=== PATIENT | female | born 1930 | race Caucasian/White ===

== ENCOUNTER 2018-05-29 13:44 | Observation (INO) | payer MEDICARE, BC ==
[2018-05-29 13:50] VITALS: RESP 18
[2018-05-29] MEDS ORDERED: SODIUM CHLORIDE 0.9% 1,000 ML IV STA (14:16)
[2018-05-29] MEDS ORDERED: NITROGLYCERIN SL TABS 0.4 MG TAB SUBLINGUAL STA (14:16)
--- NOTE | 2018-05-29 14:18 | ED ---
General Adult HPI - General Chief complaint: Chest Pain Stated complaint: chest pain Time Seen by Provider: 05/29/18 14:11 Source: patient, RN notes reviewed Mode of arrival: EMS Limitations: no limitations - History of Present Illness Initial comments: 87-year-old female presenting to the emergency room today by EMS, the chief complaint of chest tightness and shortness of breath. Patient does admit that she's been feeling more short of breath with exertion over the last few days. Patient states that last night she felt some heartburn before she went to bed. She states this morning she felt a tightness in her chest that was worse after she was up moving around and became more short of breath. She states at rest there is no shortness of breath. States there is minimal chest tightness at this time a /10. Patient denies any other complaints or symptoms currently. Patient does admit that she did take aspirin full dose prior to arrival. Patient denies any recent fever, chills, shortness of breath, chest pain, back pain, abdominal pain, nausea or vomiting, numbness or tingling, headaches or visual changes, or any other complaints. - Related Data Home Medications Medication Instructions Recorded Confirmed Apixaban [Eliquis] 5 mg PO BID 05/29/18 05/29/18 Ascorbic Acid [Vitamin C] 1,000 mg PO DAILY 05/29/18 05/29/18 Atorvastatin [Lipitor] 10 mg PO DAILY 05/29/18 05/29/18 Citalopram Hydrobromide [CeleXA] 40 mg PO DAILY 05/29/18 05/29/18 Furosemide [Lasix] 20 mg PO DAILY 05/29/18 05/29/18 HYDROcodone/APAP 5-325MG [[place] 1 tab PO Q4HR PRN 05/29/18 05/29/18 5-325] Levothyroxine Sodium [Synthroid] 88 mcg PO DAILY 05/29/18 05/29/18 Losartan-Hctz 50-12.5 mg [Hyzaar 1 tab PO DAILY 05/29/18 05/29/18 50-12.5] Mesalamine [Canasa] 1,000 mg RECTAL HS 05/29/18 05/29/18 Metoprolol Succinate (ER) [Toprol 50 mg PO DAILY 05/29/18 05/29/18 Xl] Multivitamin/Iron/Folic Acid 1 tab PO DAILY 05/29/18 05/29/18 [Centrum Complete Multivit Tab] Tiotropium [place] [Spiriva] 1 cap INHALATION RT-DAILY 05/29/18 05/29/18 hydrALAZINE HCL [Apresoline] 50 mg PO BID 05/29/18 05/29/18 Allergies Allergy/AdvReac Type Severity Reaction Status Date / Time meperidine [From Demerol] Allergy Unknown Verified 05/29/18 16:53 Sulfa (Sulfonamide Allergy Unknown Verified 05/29/18 16:53 Antibiotics) Review of Systems ROS Statement: Those systems with pertinent positive or pertinent negative responses have been documented in the HPI. ROS Other: All systems not noted in ROS Statement are negative. Past Medical History Past Medical History: Cancer, Hyperlipidemia, Hypertension, Myocardial Infarction ([place]) History of Any Multi-Drug Resistant Organisms: None Reported Past Surgical History: Heart Catheterization With Stent, Orthopedic Surgery Past Psychological History: Depression Smoking Status: Former smoker Past Alcohol Use History: Occasional Past Drug Use History: None Reported General Exam - General Exam Comments Initial Comments: General: The patient is awake and alert, in no distress, and does not appear acutely ill. Eye: There is normal conjunctiva bilaterally. No signs of icterus. Ears, nose, mouth and throat: There are moist mucous membranes and no oral lesions. Neck: The neck is supple, there is no tenderness or JVD. Cardiovascular: There is a regular rate and rhythm. No murmur, rub or gallop is appreciated. Respiratory: Lungs are clear to auscultation, respirations are non-labored, breath sounds are equal. No wheezes, stridor, rales, or rhonchi. Gastrointestinal: soft nontender. Musculoskeletal: Normal ROM, no tenderness. Strength 5/5. Sensation intact. Radial pulses equal bilaterally 2+. Neurological: A&O x 3. CN II-XII intact, There are no obvious motor or sensory deficits. Coordination appears grossly intact. Speech is normal. Skin: Skin is warm and dry and no rashes or lesions are noted. Psychiatric: Cooperative, appropriate mood & affect, normal judgment. Limitations: no limitations Course Vital Signs 05/29/18 05/29/18 05/29/18 13:46 15:00 15:08 Temperature 96.8 F L Pulse Rate 104 H 91 106 H Respiratory 18 18 Rate Blood Pressure 181/76 154/86 165/94 O2 Sat by Pulse 92 L 94 L 93 L Oximetry 05/29/18 05/29/18 15:30 16:00 Temperature Pulse Rate 96 97 Respiratory Rate Blood Pressure 165/94 166/97 O2 Sat by Pulse 94 L 97 Oximetry EKG Findings - EKG Comments: EKG Findings:: EKG performed at 1404: Shows atrial fibrillation at 99 bpm. QRS 88. QT/QTc is 400/513. No acute ST changes Medical Decision Making - Medical Decision Making patient's CT is negative for any evidence of PE. Results were discussed with patient. Labs been reviewed. Negative cardiac enzymes. Patient's EKG does show evidence for A. fib. Patient does admit that there is a history she is on pelvic was since heart attack 4 years ago. Patient will be admitted for surgical enzymes and consult cardiology. - Lab Data Result diagrams: 05/29/18 13:57 05/29/18 13:57 Lab Results 05/29/18 05/29/18 05/29/18 Range/Units 13:57 13:57 13:57 WBC 6.4 (3.8-10.6) k/uL RBC 4.30 (3.80-5.40) m/uL Hgb 13.4 (11.4-16.0) gm/dL Hct 39.9 (34.0-46.0) % MCV 92.8 (80.0-100.0) fL MCH 31.1 (25.0-35.0) pg MCHC 33.5 (31.0-37.0) g/dL RDW 13.2 (11.5-15.5) % Plt Count 203 (150-450) k/uL Neutrophils % 74 % Lymphocytes % 11 % Monocytes % 8 % Eosinophils % 3 % Basophils % 1 % Neutrophils # 4.8 (1.3-7.7) k/uL Lymphocytes # 0.7 L (1.0-4.8) k/uL Monocytes # 0.5 (0-1.0) k/uL Eosinophils # 0.2 (0-0.7) k/uL Basophils # 0.0 (0-0.2) k/uL PT (9.0-12.0) sec INR (<1.2) APTT (22.0-30.0) sec D-Dimer (<0.60) mg/L FEU Sodium 138 (137-145) mmol/L Potassium 3.8 (3.5-5.1) mmol/L Chloride 101 (98-107) mmol/L Carbon Dioxide 28 (22-30) mmol/L Anion Gap 9 mmol/L BUN 24 H (7-17) mg/dL Creatinine 1.17 H (0.52-1.04) mg/dL Est GFR (CKD-EPI)AfAm 48 (>60 ml/min/1.73 sqM) Est GFR (CKD-EPI)NonAf 42 (>60 ml/min/1.73 sqM) Glucose 106 H (74-99) mg/dL Calcium 9.7 (8.4-10.2) mg/dL Magnesium 1.9 (1.6-2.3) mg/dL Total Bilirubin 0.8 (0.2-1.3) mg/dL AST 30 (14-36) U/L ALT 23 (9-52) U/L Alkaline Phosphatase 60 (38-126) U/L Total Creatine Kinase 129 (30-135) U/L CK-MB (CK-2) 2.0 (0.0-2.4) ng/mL CK-MB (CK-2) Rel Index 1.6 Troponin I <0.012 (0.000-0.034) ng/mL Total Protein 6.9 (6.3-8.2) g/dL Albumin 4.0 (3.5-5.0) g/dL 05/29/18 05/29/18 Range/Units 13:57 13:57 WBC (3.8-10.6) k/uL RBC (3.80-5.40) m/uL Hgb (11.4-16.0) gm/dL Hct (34.0-46.0) % MCV (80.0-100.0) fL MCH (25.0-35.0) pg MCHC (31.0-37.0) g/dL RDW (11.5-15.5) % Plt Count (150-450) k/uL Neutrophils % % Lymphocytes % % Monocytes % % Eosinophils % % Basophils % % Neutrophils # (1.3-7.7) k/uL Lymphocytes # (1.0-4.8) k/uL Monocytes # (0-1.0) k/uL Eosinophils # (0-0.7) k/uL Basophils # (0-0.2) k/uL PT 10.7 (9.0-12.0) sec INR 1.0 (<1.2) APTT 29.4 (22.0-30.0) sec D-Dimer 0.79 H (<0.60) mg/L FEU Sodium (137-145) mmol/L Potassium (3.5-5.1) mmol/L Chloride (98-107) mmol/L Carbon Dioxide (22-30) mmol/L Anion Gap mmol/L BUN (7-17) mg/dL Creatinine (0.52-1.04) mg/dL Est GFR (CKD-EPI)AfAm (>60 ml/min/1.73 sqM) Est GFR (CKD-EPI)NonAf (>60 ml/min/1.73 sqM) Glucose (74-99) mg/dL Calcium (8.4-10.2) mg/dL Magnesium (1.6-2.3) mg/dL Total Bilirubin (0.2-1.3) mg/dL AST (14-36) U/L ALT (9-52) U/L Alkaline Phosphatase (38-126) U/L Total Creatine Kinase (30-135) U/L CK-MB (CK-2) (0.0-2.4) ng/mL CK-MB (CK-2) Rel Index Troponin I (0.000-0.034) ng/mL Total Protein (6.3-8.2) g/dL Albumin (3.5-5.0) g/dL Disposition Clinical Impression: Chest pain, A-fib Disposition: ADMITTED IP TO THIS HOSP Condition: Good Is patient prescribed a controlled substance at d/c from ED?: No Referrals: Nonstaff,Physician [Primary Care Provider] - 1-2 days Time of Disposition: 17:27
--- NOTE | 2018-05-29 14:38 | XR ---
EXAMINATION TYPE: XR chest 2V DATE OF EXAM: 05/29/2018 COMPARISON: NONE HISTORY: Chest pain and shortness of breath TECHNIQUE: Frontal and lateral views of the chest are obtained. FINDINGS: Patient is rotated. There is no focal air space opacity, pleural effusion, or pneumothorax seen. The cardiac silhouette size is within normal limits. The osseous structures are intact. Pro minent lung volumes suggest underlying COPD. Thoracic spondylosis is present, postop change noted to the shoulder. Prominent lung volumes are compatible with underlying COPD, there is flattening the hem idiaphragms and increased retrosternal airspace. There are overlying cardiac leads. Question some sca ttered densities in the right lower lobe possibly related to old granulomatous disease. There is even tration of the right and left hemidiaphragm. IMPRESSION: No acute cardiopulmonary process. Additional findings above.
[2018-05-29 14:41] LABS: Basophils % (A) 1 %; Eosinophils # (A) 0.2 k/uL (0-0.7); Eosinophils % (A) 3 %; HCT 39.9 % (34.0-46.0); HGB 13.4 gm/dL (11.4-16.0); Lymphocytes # (A) 0.7 k/uL (1.0-4.8); Lymphocytes % (A) 11 %; MCH 31.1 pg (25.0-35.0); MCHC 33.5 g/dL (31.0-37.0); MCV 92.8 fL (80.0-100.0); Mean Platelet Volume 7.2; Monocytes # (A) 0.5 k/uL (0-1.0); Monocytes % (A) 8 %; Neutrophils # (A) 4.8 k/uL (1.3-7.7); Neutrophils % (A) 74 %; Platelet Count 203 k/uL (150-450); RDW 13.2 % (11.5-15.5); WBC 6.4 k/uL (3.8-10.6)
[2018-05-29 14:49] LABS: Partial Thromboplastin Time 29.4 sec (22.0-30.0); Prothrombin Time 10.7 sec (9.0-12.0)
[2018-05-29 14:52] LABS: Calcium 9.7 mg/dL (8.4-10.2); Magnesium 1.9 mg/dL (1.6-2.3); Potassium 3.8 mmol/L (3.5-5.1); Total Bilirubin 0.8 mg/dL (0.2-1.3); Total Protein 6.9 g/dL (6.3-8.2)
[2018-05-29 14:58] LABS: Creatine Kinase 129 U/L (30-135)
[2018-05-29 15:11] LABS: Troponin I <0.012 ng/mL (0.000-0.034)
[2018-05-29] MEDS ORDERED: SODIUM CHLORIDE 0.9% 500 ML 500 ML IV STA (16:06)
--- NOTE | 2018-05-29 16:59 | CT ---
EXAMINATION TYPE: CT angio chest DATE OF EXAM: 05/29/2018 4:48 PM COMPARISON: None HISTORY: Chest pain CT DLP: mGycm Automated exposure control for dose reduction was used. CONTRAST: CTA scan of the thorax is performed , patient injected with mL of , pulmonary embolism protocol. . C ontrast was Isovue 80 mL. There are 3-D post processed images. FINDINGS: There is some mild pulmonary scarring and atelectasis at the lung bases. There is no pleural effusion . There is no pericardial effusion. Heart is slightly enlarged. There are no hilar masses. There is n o mediastinal adenopathy. Thoracic aorta is atheromatous. There is no evidence of aneurysm or dissect ion. Ascending aorta measures 3.4 cm. There is normal contrast opacification of the pulmonary arterie s. I see no filling defect. There is right renal cortical thinning. There is compensatory hypertrophy of the left kidney. There is no evidence of a pulmonary mass. There is some spurring in the thoracic spine. There is no compression fracture. There is mild flattening of the diaphragm. IMPRESSION: MILD ATHEROSCLEROTIC VASCULAR DISEASE. NO EVIDENCE OF PULMONARY EMBOLISM. MINIMAL FIBROTIC CHANGES AT THE LUNG BASES. COPD.
[2018-05-29] MEDS ORDERED: NITROGLYCERIN SL TABS 0.4 MG TAB SUBLINGUAL PRN (17:19)
[2018-05-29] MEDS ORDERED: ASPIRIN 81 MG PO STA (17:19)
[2018-05-29] MEDS ORDERED: LABETALOL SYRINGE 5 MG/ML IVP STA (19:43)
[2018-05-29] MEDS ORDERED: HYDROcodone/APAP 5-325MG 1 EACH TAB PO PRN (19:45)
[2018-05-29] MEDS: SODIUM CHLORIDE 0.9% 1,000 ML IV SCH (20:21)
[2018-05-29 20:30] LABS: Creatine Kinase MB 1.7 ng/mL (0.0-2.4); Troponin I 0.019 ng/mL (0.000-0.034)
[2018-05-29] MEDS ORDERED: METOPROLOL TARTRATE 25 MG TAB PO SCH (21:00)
[2018-05-29] MEDS: hydrALAZINE HCL 50 MG TAB PO SCH (22:44)
[2018-05-29] MEDS: APIXABAN 5 MG TAB PO SCH (22:44)
[2018-05-29 23:17] VITALS: BMI 24.7
[2018-05-29] MEDS: NITROGLYCERIN OINT 1 INCH/GM PACKET TOPICAL SCH (23:21)
[2018-05-30 03:02] LABS: Cholesterol 113 mg/dL (<200); HDL Cholesterol 56 mg/dL (40-60); LDL Cholesterol,Calculated 42 mg/dL (0-99); Triglycerides 74 mg/dL (<150)
[2018-05-30 03:28] LABS: Creatine Kinase MB 2.1 ng/mL (0.0-2.4); Troponin I 0.024 ng/mL (0.000-0.034)
[2018-05-30 03:44] VITALS: TEMP 97.9
[2018-05-30] MEDS: SODIUM CHLORIDE 0.9% 1,000 ML IV SCH (03:58)
[2018-05-30] MEDS: NITROGLYCERIN OINT 1 INCH/GM PACKET TOPICAL SCH (06:10)
[2018-05-30] MEDS ORDERED: LEVOTHYROXINE 88 MCG TAB PO SCH (06:30)
[2018-05-30] MEDS ORDERED: FUROSEMIDE 20 MG TAB PO SCH (09:00)
[2018-05-30] MEDS ORDERED: LOSARTAN-HCTZ 50-12.5 MG 1 EACH TAB PO SCH (09:00)
[2018-05-30] MEDS ORDERED: ASPIRIN 325 MG TAB PO SCH (09:00)
[2018-05-30] MEDS ORDERED: CITALOPRAM HYDROBROMIDE 20 MG TAB PO SCH (09:00)
[2018-05-30] MEDS ORDERED: ATORVASTATIN 10 MG TAB PO SCH (09:00)
[2018-05-30] MEDS ORDERED: METOPROLOL SUCCINATE (ER) 50 MG TAB.ER.24H PO SCH (09:00)
[2018-05-30] MEDS: hydrALAZINE HCL 50 MG TAB PO SCH (09:05)
[2018-05-30] MEDS: APIXABAN 5 MG TAB PO SCH (09:06)
[2018-05-30] MEDS ORDERED: LOSARTAN 50 MG TAB PO ONE (10:45)
[2018-05-30] MEDS ORDERED: LOSARTAN 50 MG TAB PO SCH (10:45)
--- NOTE | 2018-05-30 11:22 | ECHOF ---
Referral Reason:Chest pressure MEASUREMENTS -------- HEIGHT: 162.6 cm WEIGHT: 63.5 kg BP: 123/60 IVSd: 1.3 cm (0.6 - 1.1) LVIDd: 4.1 cm (3.9 - 5.3) LVPWd: 1.3 cm (0.6 - 1.1) IVSs: 1.4 cm LVIDs: 3.2 cm LVPWs: 1.4 cm LA Diam: 4.7 cm (2.7 - 3.8) LAESV Index (A-L): 36.59 ml/m Ao Diam: 3.2 cm (2.0 - 3.7) AV Cusp: 1.2 cm (1.5 - 2.6) LA Diam: 4.3 cm (2.7 - 3.8) MV EXCURSION: 20.824 mm (> 18.000) MV EF SLOPE: 103 mm/s (70 - 150) EPSS: 0.2 cm MV E Ronald: 0.92 m/s MV DecT: 243 ms MV A Ronald: 0.91 m/s MV E/A Ratio: 1.01 AR PHT: 377 ms RAP: 5.00 mmHg RVSP: 61.45 mmHg FINDINGS -------- Undetermined rhythm. This was a technically good study. The left ventricular size is normal. There is mild concentric left ventricular hypertrophy. Overa ll left ventricular systolic function is normal with, an EF between 55 - 60 %. The right ventricle is normal in size. The left atrium is moderately dilated. LA is moderately dilated 34-39 ml/m2 The right atrial size is normal. There is mild aortic valve sclerosis. There is mild aortic regurgitation. Mild mitral annular calcification present. Mild mitral regurgitation is present. Mild tricuspid regurgitation present. There is moderate pulmonary hypertension. The right ventric ular systolic pressure, as measured by Doppler, is 61.45mmHg. Trace/mild (physiologic) pulmonic regurgitation. The aortic root size is normal. There is no pericardial effusion. CONCLUSIONS -------- 1. The left ventricular size is normal. 2. There is mild concentric left ventricular hypertrophy. 3. Overall left ventricular systolic function is normal with, an EF between 55 - 60 %. 4. The right ventricle is normal in size. 5. The left atrium is moderately dilated. 6. LA is moderately dilated 34-39 ml/m2 7. The right atrial size is normal. 8. There is mild aortic valve sclerosis. 9. There is mild aortic regurgitation. 10. Mild mitral annular calcification present. 11. Mild mitral regurgitation is present. 12. Mild tricuspid regurgitation present. 13. There is moderate pulmonary hypertension. 14. The right ventricular systolic pressure, as measured by Doppler, is 61.45mmHg. 15. Trace/mild (physiologic) pulmonic regurgitation. 16. The aortic root size is normal. 17. There is no pericardial effusion. DIRECTOR DRUG: Loni Schwarz RDCS
[2018-05-30] MEDS ORDERED: CAFFEINE CITRATE 60 MG/3 ML VIAL IV PRN (11:24)
[2018-05-30] MEDS ORDERED: REGADENOSON 0.4 MG/5 ML SYRINGE IV ONE (11:24)
--- NOTE | 2018-05-30 11:40 | P.CRDCN ---
History of Present Illness Consult date: 05/30/18 Requesting physician: Kaia Omalley Consult reason: chest pain, atrial fibrillation Chief complaint: Exertional shortness of breath and chest discomfort History of present illness: This is a pleasant 87-year-old female who actually resides in [place], she is here in this area locally taking care of her sister right now who had surgery. She has a known history of hypertension, hyperlipidemia, paroxysmal atrial fibrillation for which she takes Eliquis, coronary artery disease with prior stent placement approximately 4 years ago. She is a nonsmoker. According to the patient over the past few days she has noticed herself to be exertionally short of breath, even walking small distances she becomes quite short of breath. Symptoms seemed to resolve when she rests. Just prior to admission here she also noticed on top of the shortness of breath that she had some chest heaviness and pressure. When she went to bed that evening prior she did have some mild heartburn. Because of these progressively worsening symptoms of exertional shortness of breath and episode of chest discomfort she came to the hospital for further evaluation. Chest x-ray on arrival here did not reveal any acute cardiopulmonary process. CTA of the chest was performed which revealed mild atherosclerotic vascular disease with no evidence of pulmonary embolism. EKG on admission here showed atrial fibrillation with nonspecific ST- T wave changes heart rate around 100 on admission. She has since been burred to normal sinus rhythm and remains in sinus rhythm at this time. She had an echo cardiac gram with Doppler study performed which revealed an EF of 55-60%. Moderate pulmonary hypertension. Blood pressure 164/70 heart rate in the 70s, 94% on room air. Blood pressure earlier this morning 128/60 with a heart rate in the 60s. White blood cell count 6.4, hemoglobin 13.4, platelet count 203. D -dimer 0.79. Sodium 138, potassium 3.8, BUN 24, creatinine 1.1. Troponins 0.012, 0.019, 0.024. At the time of my examination this morning, patient is sitting up in bed, denies any shortness of breath, no palpitations, no chest discomfort. Past Medical History Past Medical History: Atrial Fibrillation, Cancer, Hyperlipidemia, Hypertension , Myocardial Infarction ([place]) Additional Past Medical History / Comment(s): Breast Cancer (1997), Right lumpectomy. Last Myocardial Infarction Date:: 06/22/2013 History of Any Multi-Drug Resistant Organisms: None Reported Past Surgical History: Heart Catheterization With Stent, Orthopedic Surgery Past Anesthesia/Blood Transfusion Reactions: No Reported Reaction Date of Last Stent Placement:: 06/22/2013 Past Psychological History: Depression Smoking Status: Former smoker Past Alcohol Use History: Occasional Past Drug Use History: None Reported - Past Family History Father Additional Family Medical History / Comment(s): Meningitis Mother Family Medical History: Dementia, Hypertension Medications and Allergies Home Medications Medication Instructions Recorded Confirmed Type Apixaban [Eliquis] 5 mg PO BID 05/29/18 05/29/18 History Ascorbic Acid [Vitamin C] 1,000 mg PO DAILY 05/29/18 05/29/18 History Atorvastatin [Lipitor] 10 mg PO DAILY 05/29/18 05/29/18 History Citalopram Hydrobromide [CeleXA] 40 mg PO DAILY 05/29/18 05/29/18 History Furosemide [Lasix] 20 mg PO DAILY 05/29/18 05/29/18 History HYDROcodone/APAP 5-325MG [[place] 1 tab PO Q4HR PRN 05/29/18 05/29/18 History 5-325] Levothyroxine Sodium [Synthroid] 88 mcg PO DAILY 05/29/18 05/29/18 History Losartan-Hctz 50-12.5 mg [Hyzaar 1 tab PO DAILY 05/29/18 05/29/18 History 50-12.5] Mesalamine [Canasa] 1,000 mg RECTAL HS 05/29/18 05/29/18 History Metoprolol Succinate (ER) [Toprol 50 mg PO DAILY 05/29/18 05/29/18 History Xl] Multivitamin/Iron/Folic Acid 1 tab PO DAILY 05/29/18 05/29/18 History [Centrum Complete Multivit Tab] Tiotropium [place] [Spiriva] 1 cap INHALATION RT-DAILY 05/29/18 05/29/18 History hydrALAZINE HCL [Apresoline] 50 mg PO BID 05/29/18 05/29/18 History Allergies Allergy/AdvReac Type Severity Reaction Status Date / Time meperidine [From Demerol] Allergy Unknown Verified 05/29/18 16:53 Sulfa (Sulfonamide Allergy Unknown Verified 05/29/18 16:53 Antibiotics) Physical Exam Vitals: Vital Signs Temp Pulse Pulse Resp BP BP Pulse Ox 05/30/18 09:00 79 18 164/76 94 L 05/30/18 03:40 97.9 F 69 18 127/60 93 L 05/30/18 00:36 97.6 F 75 18 124/57 93 L 05/30/18 00:00 18 05/29/18 22:41 97.8 F 78 18 211/91 96 05/29/18 21:30 64 157/95 97 05/29/18 21:00 72 179/65 97 05/29/18 20:30 61 203/94 97 05/29/18 20:00 104 H 206/97 05/29/18 19:30 100 216/110 05/29/18 19:00 87 210/109 97 05/29/18 18:30 101 H 211/115 98 05/29/18 18:00 222/121 05/29/18 17:30 109 H 207/124 95 05/29/18 17:00 91 179/83 97 05/29/18 16:00 97 166/97 97 05/29/18 15:30 96 165/94 94 L 05/29/18 15:08 106 H 18 165/94 93 L 05/29/18 15:00 91 154/86 94 L 05/29/18 13:46 96.8 F L 104 H 18 181/76 92 L Intake and Output 05/29/18 05/30/18 05/30/18 22:59 06:59 14:59 Intake Total 750 240 Balance 750 240 Intake: Intake, IV Titration 750 Amount Sodium Chloride 0.9% 1, 250 000 ml @ 100 mls/hr IV . Q10H VANESSA Rx#:[id number] Sodium Chloride 0.9% 500 500 ml 500 ml @ 999 mls/hr IV .Q31M STA Rx#:[id number] Oral 240 Other: Voiding Method Self-Catheterization Self-Catheterization Weight 63.503 kg 65.1 kg PHYSICAL EXAMINATION: GENERAL: 79-year-old female in no acute distress at the time of my examination HEENT: Head is atraumatic, normocephalic. Pupils equal, round. Sclera anicteric. Conjunctiva are clear. Mucous membranes of the mouth are moist. Neck is supple. There is no elevated jugular venous pressure. No carotid bruit is heard. HEART EXAMINATION: Heart S1, S2 normal. No murmur or gallop heard. CHEST EXAMINATION: Lungs are clear to auscultation and precussion. No chest wall tenderness is noted on palpation or with deep breathing. ABDOMEN: Soft, nontender. Bowel sounds are heard. No organomegaly noted. EXTREMITIES: 2+ peripheral pulses with no evidence of peripheral edema and no calf tenderness noted. NEUROLOGIC patient is awake, alert and oriented 3 . . Results 05/29/18 13:57 05/29/18 13:57 Cardiac Enzymes 05/29/18 05/29/18 05/29/18 Range/Units 13:57 13:57 19:21 AST 30 (14-36) U/L CK-MB (CK-2) 2.0 1.7 (0.0-2.4) ng/mL Troponin I <0.012 0.019 (0.000-0.034) ng/mL 05/30/18 Range/Units 02:32 AST (14-36) U/L CK-MB (CK-2) 2.1 (0.0-2.4) ng/mL Troponin I 0.024 (0.000-0.034) ng/mL Coagulation 05/29/18 Range/Units 13:57 PT 10.7 (9.0-12.0) sec APTT 29.4 (22.0-30.0) sec Lipids 05/30/18 Range/Units 02:32 Triglycerides 74 (<150) mg/dL Cholesterol 113 (<200) mg/dL HDL Cholesterol 56 (40-60) mg/dL CBC 05/29/18 Range/Units 13:57 WBC 6.4 (3.8-10.6) k/uL RBC 4.30 (3.80-5.40) m/uL Hgb 13.4 (11.4-16.0) gm/dL Hct 39.9 (34.0-46.0) % Plt Count 203 (150-450) k/uL Comprehensive Metabolic Panel 05/29/18 Range/Units 13:57 Sodium 138 (137-145) mmol/L Potassium 3.8 (3.5-5.1) mmol/L Chloride 101 (98-107) mmol/L Carbon Dioxide 28 (22-30) mmol/L BUN 24 H (7-17) mg/dL Creatinine 1.17 H (0.52-1.04) mg/dL Glucose 106 H (74-99) mg/dL Calcium 9.7 (8.4-10.2) mg/dL AST 30 (14-36) U/L ALT 23 (9-52) U/L Alkaline Phosphatase 60 (38-126) U/L Total Protein 6.9 (6.3-8.2) g/dL Albumin 4.0 (3.5-5.0) g/dL Current Medications Generic Name Dose Route Start Last Admin Trade Name Freq PRN Reason Stop Dose Admin Hydrocodone Bitart/Acetaminophen 1 each 05/29/18 19:45 [place] 5-325 PO Q4HR PRN Pain Apixaban 5 mg 05/29/18 21:00 05/30/18 09:06 Eliquis PO 5 mg BID VANESSA Administration Aspirin 325 mg 05/30/18 09:00 05/30/18 09:05 Aspirin PO 325 mg DAILY VANESSA Administration Atorvastatin Cal[place] 10 mg 05/30/18 09:00 05/30/18 09:05 Lipitor PO 10 mg DAILY VANESSA Administration Caffeine Citrate 60 mg 05/30/18 11:24 Cafcit Inj IV 05/31/18 11:25 ONCE PRN Patient Response Citalopram Hydrobromide 40 mg 05/30/18 09:00 05/30/18 09:05 Celexa PO 40 mg DAILY VANESSA Administration Hydralazine HCl 50 mg 05/29/18 21:00 05/30/18 09:05 Apresoline PO 50 mg BID VANESSA Administration Sodium Chloride 1,000 mls @ 20 mls/hr 05/29/18 14:16 05/29/18 20:21 Saline 0.9% IV 05/30/18 14:15 Not Given .Q24H STA Sodium Chloride 1,000 mls @ 100 mls/hr 05/29/18 17:30 05/30/18 03:58 Saline 0.9% IV Not Given .Q10H VANESSA Levothyroxine Sodium 88 mcg 05/30/18 06:30 05/30/18 06:10 Synthroid PO 88 mcg 0630 VANESSA Administration Losartan Potassium 100 mg 05/31/18 09:00 Cozaar PO DAILY VANESSA Metoprolol Succinate 50 mg 05/30/18 09:00 05/30/18 09:10 Toprol Xl PO 50 mg DAILY VANESSA Administration Nitroglycerin 0.4 mg 05/29/18 17:19 Nitrostat SUBLINGUAL Q5M PRN Chest Pain Regadenoson 0.4 mg 05/30/18 11:24 Lexiscan IV 05/30/18 11:25 ONCE ONE Intake and Output 05/29/18 05/30/18 05/30/18 22:59 06:59 14:59 Intake Total 750 240 Balance 750 240 Intake: Intake, IV Titration 750 Amount Sodium Chloride 0.9% 1, 250 000 ml @ 100 mls/hr IV . Q10H VANESSA Rx#:[id number] Sodium Chloride 0.9% 500 500 ml 500 ml @ 999 mls/hr IV .Q31M STA Rx#:[id number] Oral 240 Other: Voiding Method Self-Catheterization Self-Catheterization Weight 63.503 kg 65.1 kg Patient Weight 05/31/18 06:59 Weight 65.1 kg 05/29/18 13:57 05/29/18 13:57 EKG Interpretations (text) EKG on admission showed atrial fibrillation with moderately rapid ventricular response Assessment and Plan Plan: Assessment and plan #1 symptoms of exertional shortness of breath as well as associated chest discomfort. Suggestive of possible angina. Symptoms could also be secondary to atrial fibrillation. Troponins 0.012, 0.019, 0.024. EKG on admission showed atrial fibrillation with moderately rapid ventricular response, nonspecific ST-T wave changes. CTA of the chest negative for pulmonary embolism echo shows normal LV function #2 known history of coronary artery disease with stent placement approximately 4 years ago in [place] #3 history of paroxysmal atrial fibrillation on Eliquis for anticoagulation #4 atrial fibrillation with moderately rapid ventricular response, currently in normal sinus rhythm. #5 hypothyroidism #6 hypertension #7 hyperlipidemia Plan We will perform a Lexiscan stress test on the patient today, if it's negative she may be able to be discharged home from our perspective. If the stress test is positive, she may require cardiac catheterization. Echo shows normal LV function. Further recommendations to follow. DNP note has been reviewed, I agree with a documented findings and plan of care. Patient was seen and examined.
[2018-05-30 12:03] VITALS: BP 165/78; PULSE 67
--- NOTE | 2018-05-30 12:08 | P.CRDCN ---
History of Present Illness History of present illness: This is Dr. Claros dictating a consult on this patient The patient was interviewed and examined by me IMPRESSION / ASSESSMENT: Paroxysmal atrial fibrillation with reasonable rate control on 50 mm of metoprolol [address] depression inferolaterally during atrial fibrillation Presented with shortness of breath and some chest discomfort Normal chronic enzymes 3 Known coronary artery disease status post stenting in the past at least 4 years back Appropriately anticoagulated Hypertension on losartan 100 mg by mouth daily blood pressure recently well controlled Hemoglobin 13.4, BUN/creatinine are 24 and 1.17 sodium 138 potassium 3.8 Left radical ejection fraction 50-60% moderately enlarged left atrium mild MR right ventricle systolic pressure of 60 mmHg PLAN: Patient may go home in the next 4-48 hours and follow with me in june 2 40 5 PM. Further evaluation as an outpatient Increase atorvastatin 40 mg by mouth daily Continue metoprolol long-acting 50 mrem daily continue losartan 100 mg by mouth daily As an outpatient follow-up Holter monitor will be ordered. And I may consider increasing metoprolol to 75 mg by mouth daily as long as a sinus rates are okay. Discharge 12-lead ECG and a saldaña walk with be performed Amlodipine may be chosen in place of hydralazine as an outpatient Past Medical History Past Medical History: Atrial Fibrillation, Cancer, Hyperlipidemia, Hypertension , Myocardial Infarction ([place]) Additional Past Medical History / Comment(s): Breast Cancer (1997), Right lumpectomy. Last Myocardial Infarction Date:: 06/22/2013 History of Any Multi-Drug Resistant Organisms: None Reported Past Surgical History: Heart Catheterization With Stent, Orthopedic Surgery Past Anesthesia/Blood Transfusion Reactions: No Reported Reaction Date of Last Stent Placement:: 06/22/2013 Past Psychological History: Depression Smoking Status: Former smoker Past Alcohol Use History: Occasional Past Drug Use History: None Reported - Past Family History Father Additional Family Medical History / Comment(s): Meningitis Mother Family Medical History: Dementia, Hypertension Medications and Allergies Home Medications Medication Instructions Recorded Confirmed Type Apixaban [Eliquis] 5 mg PO BID 05/29/18 05/29/18 History Ascorbic Acid [Vitamin C] 1,000 mg PO DAILY 05/29/18 05/29/18 History Atorvastatin [Lipitor] 10 mg PO DAILY 05/29/18 05/29/18 History Citalopram Hydrobromide [CeleXA] 40 mg PO DAILY 05/29/18 05/29/18 History Furosemide [Lasix] 20 mg PO DAILY 05/29/18 05/29/18 History HYDROcodone/APAP 5-325MG [[place] 1 tab PO Q4HR PRN 05/29/18 05/29/18 History 5-325] Levothyroxine Sodium [Synthroid] 88 mcg PO DAILY 05/29/18 05/29/18 History Losartan-Hctz 50-12.5 mg [Hyzaar 1 tab PO DAILY 05/29/18 05/29/18 History 50-12.5] Mesalamine [Canasa] 1,000 mg RECTAL HS 05/29/18 05/29/18 History Metoprolol Succinate (ER) [Toprol 50 mg PO DAILY 05/29/18 05/29/18 History Xl] Multivitamin/Iron/Folic Acid 1 tab PO DAILY 05/29/18 05/29/18 History [Centrum Complete Multivit Tab] Tiotropium [place] [Spiriva] 1 cap INHALATION RT-DAILY 05/29/18 05/29/18 History hydrALAZINE HCL [Apresoline] 50 mg PO BID 05/29/18 05/29/18 History Allergies Allergy/AdvReac Type Severity Reaction Status Date / Time meperidine [From Demerol] Allergy Unknown Verified 05/29/18 16:53 Sulfa (Sulfonamide Allergy Unknown Verified 05/29/18 16:53 Antibiotics) Physical Exam Vitals: Vital Signs Temp Pulse Pulse Resp BP BP Pulse Ox 05/30/18 12:00 67 18 165/78 94 L 05/30/18 09:00 79 18 164/76 94 L 05/30/18 03:40 97.9 F 69 18 127/60 93 L 05/30/18 00:36 97.6 F 75 18 124/57 93 L 05/30/18 00:00 18 05/29/18 22:41 97.8 F 78 18 211/91 96 05/29/18 21:30 64 157/95 97 05/29/18 21:00 72 179/65 97 05/29/18 20:30 61 203/94 97 05/29/18 20:00 104 H 206/97 05/29/18 19:30 100 216/110 05/29/18 19:00 87 210/109 97 05/29/18 18:30 101 H 211/115 98 05/29/18 18:00 222/121 05/29/18 17:30 109 H 207/124 95 05/29/18 17:00 91 179/83 97 05/29/18 16:00 97 166/97 97 05/29/18 15:30 96 165/94 94 L 05/29/18 15:08 106 H 18 165/94 93 L 05/29/18 15:00 91 154/86 94 L 05/29/18 13:46 96.8 F L 104 H 18 181/76 92 L Intake and Output 05/29/18 05/30/18 05/30/18 22:59 06:59 14:59 Intake Total 750 640 Balance 750 640 Intake: Intake, IV Titration 750 400 Amount Sodium Chloride 0.9% 1, 250 400 000 ml @ 100 mls/hr IV . Q10H [facility] Rx#:[id number] Sodium Chloride 0.9% 500 500 ml 500 ml @ 999 mls/hr IV .Q31M [facility] Rx#:[id number] Oral 240 Other: Voiding Method Self-Catheterization Self-Catheterization Weight 63.503 kg 65.1 kg Results 05/29/18 13:57 05/29/18 13:57 Cardiac Enzymes 05/29/18 05/29/18 05/29/18 Range/Units 13:57 13:57 19:21 AST 30 (14-36) U/L CK-MB (CK-2) 2.0 1.7 (0.0-2.4) ng/mL Troponin I <0.012 0.019 (0.000-0.034) ng/mL 05/30/18 Range/Units 02:32 AST (14-36) U/L CK-MB (CK-2) 2.1 (0.0-2.4) ng/mL Troponin I 0.024 (0.000-0.034) ng/mL Coagulation 05/29/18 Range/Units 13:57 PT 10.7 (9.0-12.0) sec APTT 29.4 (22.0-30.0) sec Lipids 05/30/18 Range/Units 02:32 Triglycerides 74 (<150) mg/dL Cholesterol 113 (<200) mg/dL HDL Cholesterol 56 (40-60) mg/dL CBC 05/29/18 Range/Units 13:57 WBC 6.4 (3.8-10.6) k/uL RBC 4.30 (3.80-5.40) m/uL Hgb 13.4 (11.4-16.0) gm/dL Hct 39.9 (34.0-46.0) % Plt Count 203 (150-450) k/uL Comprehensive Metabolic Panel 05/29/18 Range/Units 13:57 Sodium 138 (137-145) mmol/L Potassium 3.8 (3.5-5.1) mmol/L Chloride 101 (98-107) mmol/L Carbon Dioxide 28 (22-30) mmol/L BUN 24 H (7-17) mg/dL Creatinine 1.17 H (0.52-1.04) mg/dL Glucose 106 H (74-99) mg/dL Calcium 9.7 (8.4-10.2) mg/dL AST 30 (14-36) U/L ALT 23 (9-52) U/L Alkaline Phosphatase 60 (38-126) U/L Total Protein 6.9 (6.3-8.2) g/dL Albumin 4.0 (3.5-5.0) g/dL Current Medications Generic Name Dose Route Start Last Admin Trade Name Freq PRN Reason Stop Dose Admin Hydrocodone Bitart/Acetaminophen 1 each 05/29/18 19:45 [place] 5-325 PO Q4HR PRN Pain Apixaban 5 mg 05/29/18 21:00 05/30/18 09:06 Eliquis PO 5 mg BID [facility] Administration Aspirin 81 mg 05/31/18 09:00 Aspirin PO DAILY [facility] Atorvastatin Calcium 40 mg 05/30/18 21:00 Lipitor PO HS [facility] Caffeine Citrate 60 mg 05/30/18 11:24 Cafcit Inj IV 05/31/18 11:25 ONCE PRN Patient Response Citalopram Hydrobromide 40 mg 05/30/18 09:00 05/30/18 09:05 Celexa PO 40 mg DAILY [facility] Administration Hydralazine HCl 50 mg 05/29/18 21:00 05/30/18 09:05 Apresoline PO 50 mg BID [facility] Administration Sodium Chloride 1,000 mls @ 20 mls/hr 05/29/18 14:16 05/29/18 20:21 Saline 0.9% IV 05/30/18 14:15 Not Given .Q24H [facility] Sodium Chloride 1,000 mls @ 100 mls/hr 05/29/18 17:30 05/30/18 03:58 Saline 0.9% IV Not Given .Q10H [facility] Levothyroxine Sodium 88 mcg 05/30/18 06:30 05/30/18 06:10 Synthroid PO 88 mcg 0630 [facility] Administration Losartan Potassium 100 mg 05/31/18 09:00 Cozaar PO DAILY [facility] Metoprolol Succinate 50 mg 05/30/18 09:00 05/30/18 09:10 Toprol Xl PO 50 mg DAILY [facility] Administration Nitroglycerin 0.4 mg 05/29/18 17:19 Nitrostat SUBLINGUAL Q5M PRN Chest Pain Intake and Output 05/29/18 05/30/18 05/30/18 22:59 06:59 14:59 Intake Total 750 640 Balance 750 640 Intake: Intake, IV Titration 750 400 Amount Sodium Chloride 0.9% 1, 250 400 000 ml @ 100 mls/hr IV . Q10H [facility] Rx#:[id number] Sodium Chloride 0.9% 500 500 ml 500 ml @ 999 mls/hr IV .Q31M [facility] Rx#:[id number] Oral 240 Other: Voiding Method Self-Catheterization Self-Catheterization Weight 63.503 kg 65.1 kg Patient Weight 05/31/18 06:59 Weight 65.1 kg 05/29/18 13:57 05/29/18 13:57
--- NOTE | 2018-05-30 12:09 | P.HPIM ---
History of Present Illness Patient is a pleasant 81-year-old female came in with compensative chest pressure like sensation which started yesterday morning she woke up from sleep denied any nausea lightheadedness and patient chest pain is nonradiating moderate to severe in severity she was bit short of breath denied any significant diaphoresis chest pain is nonpleuritic not associated with food. Patient does have history of atrial fibrillation patient is presently rate controlled actually sinus rhythm patient was comparing of mild heartburn as well. Patient had a cardiac catheterization and stenting 4 years ago. Patient had normal ejection fraction moderate pulmonary hypertension the past patient's troponins are negative EKG did not show any acute ST-T wave changes. Cardiology will evaluate the patient. Review of Systems REVIEW OF SYSTEMS: CONSTITUTIONAL: No fever, no malaise, no fatigue. HEENT: No recent visual problems or hearing problems. Denied any sore throat. CARDIOVASCULAR: No orthopnea, PND, no palpitations, no syncope. PULMONARY: No shortness of breath, no cough, no hemoptysis. GASTROINTESTINAL: No diarrhea, no nausea, no vomiting, no abdominal pain. NEUROLOGICAL: No headaches, no weakness, no numbness. HEMATOLOGICAL: Denies any bleeding or petechiae. GENITOURINARY: Denies any burning micturition, frequency, or urgency. MUSCULOSKELETAL/RHEUMATOLOGICAL: Denies any joint pain, swelling, or any muscle pain. ENDOCRINE: Denies any polyuria or polydipsia. The rest of the 14-point review of systems is negative. Past Medical History Past Medical History: Atrial Fibrillation, Cancer, Hyperlipidemia, Hypertension , Myocardial Infarction ([place]) Additional Past Medical History / Comment(s): Breast Cancer (1997), Right lumpectomy. Last Myocardial Infarction Date:: 06/22/2013 History of Any Multi-Drug Resistant Organisms: None Reported Past Surgical History: Heart Catheterization With Stent, Orthopedic Surgery Past Anesthesia/Blood Transfusion Reactions: No Reported Reaction Date of Last Stent Placement:: 06/22/2013 Past Psychological History: Depression Smoking Status: Former smoker Past Alcohol Use History: Occasional Past Drug Use History: None Reported - Past Family History Father Additional Family Medical History / Comment(s): Meningitis Mother Family Medical History: Dementia, Hypertension Medications and Allergies Home Medications Medication Instructions Recorded Confirmed Type Apixaban [Eliquis] 5 mg PO BID 05/29/18 05/29/18 History Ascorbic Acid [Vitamin C] 1,000 mg PO DAILY 05/29/18 05/29/18 History Atorvastatin [Lipitor] 10 mg PO DAILY 05/29/18 05/29/18 History Citalopram Hydrobromide [CeleXA] 40 mg PO DAILY 05/29/18 05/29/18 History Furosemide [Lasix] 20 mg PO DAILY 05/29/18 05/29/18 History HYDROcodone/APAP 5-325MG [[place] 1 tab PO Q4HR PRN 05/29/18 05/29/18 History 5-325] Levothyroxine Sodium [Synthroid] 88 mcg PO DAILY 05/29/18 05/29/18 History Losartan-Hctz 50-12.5 mg [Hyzaar 1 tab PO DAILY 05/29/18 05/29/18 History 50-12.5] Mesalamine [Canasa] 1,000 mg RECTAL HS 05/29/18 05/29/18 History Metoprolol Succinate (ER) [Toprol 50 mg PO DAILY 05/29/18 05/29/18 History Xl] Multivitamin/Iron/Folic Acid 1 tab PO DAILY 05/29/18 05/29/18 History [Centrum Complete Multivit Tab] Tiotropium [place] [Spiriva] 1 cap INHALATION RT-DAILY 05/29/18 05/29/18 History hydrALAZINE HCL [Apresoline] 50 mg PO BID 05/29/18 05/29/18 History Allergies Allergy/AdvReac Type Severity Reaction Status Date / Time meperidine [From Demerol] Allergy Unknown Verified 05/29/18 16:53 Sulfa (Sulfonamide Allergy Unknown Verified 05/29/18 16:53 Antibiotics) Physical Exam Vitals: Vital Signs Temp Pulse Pulse Resp BP BP Pulse Ox 05/30/18 12:00 67 18 165/78 94 L 05/30/18 09:00 79 18 164/76 94 L 05/30/18 03:40 97.9 F 69 18 127/60 93 L 05/30/18 00:36 97.6 F 75 18 124/57 93 L 05/30/18 00:00 18 05/29/18 22:41 97.8 F 78 18 211/91 96 05/29/18 21:30 64 157/95 97 05/29/18 21:00 72 179/65 97 05/29/18 20:30 61 203/94 97 05/29/18 20:00 104 H 206/97 05/29/18 19:30 100 216/110 05/29/18 19:00 87 210/109 97 05/29/18 18:30 101 H 211/115 98 05/29/18 18:00 222/121 05/29/18 17:30 109 H 207/124 95 05/29/18 17:00 91 179/83 97 05/29/18 16:00 97 166/97 97 05/29/18 15:30 96 165/94 94 L 05/29/18 15:08 106 H 18 165/94 93 L 05/29/18 15:00 91 154/86 94 L 05/29/18 13:46 96.8 F L 104 H 18 181/76 92 L Intake and Output 05/29/18 05/30/18 05/30/18 22:59 06:59 14:59 Intake Total 750 640 Balance 750 640 Intake: Intake, IV Titration 750 400 Amount Sodium Chloride 0.9% 1, 250 400 000 ml @ 100 mls/hr IV . Q10H [facility] Rx#:[id number] Sodium Chloride 0.9% 500 500 ml 500 ml @ 999 mls/hr IV .Q31M [facility] Rx#:[id number] Oral 240 Other: Voiding Method Self-Catheterization Self-Catheterization Weight 63.503 kg 65.1 kg PHYSICAL EXAMINATION: GENERAL: The patient is alert and oriented x3, not in any acute distress. Well developed, well nourished. HEENT: Pupils are round and equally reacting to light. EOMI. No scleral icterus. No conjunctival pallor. Normocephalic, atraumatic. No pharyngeal erythema. No thyromegaly. CARDIOVASCULAR: S1 and S2 present. No murmurs, rubs, or gallops. PULMONARY: Chest is clear to auscultation, no wheezing or crackles. ABDOMEN: Soft, nontender, nondistended, normoactive bowel sounds. No palpable organomegaly. MUSCULOSKELETAL: No joint swelling or deformity. EXTREMITIES: No cyanosis, clubbing, or pedal edema. NEUROLOGICAL: Gross neurological examination did not reveal any focal deficits. SKIN: No rashes. Results CBC & Chem 7: 05/29/18 13:57 05/29/18 13:57 Labs: Abnormal Lab Results - Last 24 Hours (Table) 05/29/18 05/29/18 05/29/18 Range/Units 13:57 13:57 13:57 Lymphocytes # 0.7 L (1.0-4.8) k/uL D-Dimer 0.79 H (<0.60) mg/L FEU BUN 24 H (7-17) mg/dL Creatinine 1.17 H (0.52-1.04) mg/dL Glucose 106 H (74-99) mg/dL Total Creatine Kinase (30-135) U/L 05/30/18 Range/Units 02:32 Lymphocytes # (1.0-4.8) k/uL D-Dimer (<0.60) mg/L FEU BUN (7-17) mg/dL Creatinine (0.52-1.04) mg/dL Glucose (74-99) mg/dL Total Creatine Kinase 136 H (30-135) U/L Thrombosis Risk Factor Assmnt - Choose All That Apply Other Risk Factors: Yes Each Risk Factor Represents 3 Points: Age 75 years or older Thrombosis Risk Factor Assessment Total Risk Factor Score: 3 Thrombosis Risk Factor Assessment Level: Moderate Risk Assessment and Plan Plan: -chest pain with exertional shortness of breath: Possibility of angina cannot be ruled out patient will undergo stress test troponins were negative. Stresses is negative patient will be discharged today. -Atrial fibrillation presently rate controlled on anticoagulation which will be continued -Coronary artery disease with previous stent placement in the past -Hypothyroidism -Hypertension -Hyperlipidemia -Mild acute renal failure with elevated creatinine although hold off on diuretic therapy patient has mildly elevated blood pressures patient's the antidepressant receptor kristyn dose will be increased diuretics will be discontinued. If needed down the line probably patient can be started on hydrochlorothiazide or Lasix but not both.
[2018-05-30] MEDS ORDERED: ATORVASTATIN 40 MG TAB PO SCH (21:00)
[2018-05-31] MEDS ORDERED: LOSARTAN 50 MG TAB PO SCH (09:00)
[2018-05-31] MEDS ORDERED: ASPIRIN 81 MG PO SCH (09:00)
== END 2018-05-30 13:52 | disposition home or self-care (01) ==
LOC: EC 13:44 → 3SCARD 17:39
PROVIDERS: ADMIT Hospitalist; ATTEND Hospitalist
DX: R07.89 Other chest pain (principal); E78.5 Hyperlipidemia, unspecified; I10 Essential (primary) hypertension; I25.10 Atherosclerotic heart disease of native coronary artery without angina pectoris; I48.0 Paroxysmal atrial fibrillation; E03.9 Hypothyroidism, unspecified; I27.20 Pulmonary hypertension, unspecified; N17.9 Acute kidney failure, unspecified; F32.9 Major depressive disorder, single episode, unspecified; Z87.891 Personal history of nicotine dependence; Z79.01 Long term (current) use of anticoagulants; Z79.890 Hormone replacement therapy; Z79.899 Other long term (current) drug therapy; Z88.5 Allergy status to narcotic agent; Z88.2 Allergy status to sulfonamides; I25.2 Old myocardial infarction; Z95.5 Presence of coronary angioplasty implant and graft; Z85.3 Personal history of malignant neoplasm of breast; Z82.49 Family history of ischemic heart disease and other diseases of the circulatory system
CPT/HCPCS: 96374; 99285; 36415; 93005; 93306; 85379; 83880; 80061; 80053; 84443; 82550 ×2; 82553 ×2; 83735; 84484 ×2; 85025; 85610; 85730; 71046; 71275; G0378 ×2; J2785; Q9967

== ENCOUNTER 2018-06-10 14:21 | Observation (INO) | payer MEDICARE, BC ==
--- NOTE | 2018-06-10 15:24 | ED ---
General Adult HPI - General Chief complaint: Shortness of Breath Stated complaint: SOB Time Seen by Provider: 06/10/18 14:30 Source: patient, RN notes reviewed Mode of arrival: wheelchair Limitations: no limitations - History of Present Illness Initial comments: This is an 87-year-old female presents emergency Department with a past medical history significant for atrial fibrillation for which she is on eliquis. Patient comes in today she states that she is short of breath the last week. Patient states the shortness of breath is worse with exertion. Patient denies any chest pain area patient states she does have some palpitations when she starts walking she feels as though her heart is racing and she short of breath. Patient denies any leg swelling or calf tenderness. Patient denies abdominal pain patient denies nausea vomiting diarrhea. Patient denies any lightheadedness or dizziness. Patient denies any numbness or weakness. Patient denies any recent fever chills or cough. Patient states while sitting in bed resting she does not have much short of breath - Related Data Home Medications Medication Instructions Recorded Confirmed Apixaban [Eliquis] 5 mg PO BID 05/29/18 06/10/18 Citalopram Hydrobromide [CeleXA] 40 mg PO DAILY 05/29/18 06/10/18 Multivitamin/Iron/Folic Acid 1 tab PO DAILY 05/29/18 06/10/18 [Centrum Complete Multivit Tab] Atorvastatin [Lipitor] 20 mg PO HS 06/10/18 06/10/18 Furosemide [Lasix] 20 mg PO DAILY 06/10/18 06/10/18 HYDROcodone/APAP 7.5-325MG [[place] 1 tab PO DAILY PRN 06/10/18 06/10/18 7.5-325] Levothyroxine Sodium [Synthroid] 75 mcg PO DAILY 06/10/18 06/10/18 Losartan Potassium 100 mg PO HS 06/10/18 06/10/18 Previous Rx's Medication Instructions Recorded hydrALAZINE HCL [Apresoline] 50 mg PO TID #0 05/30/18 Allergies Allergy/AdvReac Type Severity Reaction Status Date / Time meperidine [From Demerol] Allergy Unknown Verified 06/10/18 14:47 Sulfa (Sulfonamide Allergy Unknown Verified 06/10/18 14:47 Antibiotics) Review of Systems ROS Statement: Those systems with pertinent positive or pertinent negative responses have been documented in the HPI. ROS Other: All systems not noted in ROS Statement are negative. Past Medical History Past Medical History: Atrial Fibrillation, Cancer, Hyperlipidemia, Hypertension , Myocardial Infarction ([place]) Additional Past Medical History / Comment(s): Breast Cancer (1997), Right lumpectomy. Last Myocardial Infarction Date:: 06/22/2013 History of Any Multi-Drug Resistant Organisms: None Reported Past Surgical History: Heart Catheterization With Stent, Orthopedic Surgery Past Anesthesia/Blood Transfusion Reactions: No Reported Reaction Date of Last Stent Placement:: 06/22/2013 Past Psychological History: Depression Smoking Status: Former smoker Past Alcohol Use History: Occasional Past Drug Use History: None Reported - Past Family History Father Additional Family Medical History / Comment(s): Meningitis Mother Family Medical History: Dementia, Hypertension General Exam - General Exam Comments Initial Comments: GENERAL: Patient is well-developed and well-nourished. Patient is nontoxic and well- hydrated and is in mild distress. ENT: Neck is soft and supple. No significant lymphadenopathy is noted. Oropharynx is clear. Moist mucous membranes. Neck has full range of motion without eliciting any pain. EYES: The sclera were anicteric and conjunctiva were pink and moist. Extraocular movements were intact and pupils were equal round and reactive to light. Eyelids were unremarkable. PULMONARY: Unlabored respirations. Good breath sounds bilaterally. Diminished breath sounds on the left CARDIOVASCULAR: There is a regular rate and rhythm without any murmurs gallops or rubs. ABDOMEN: Soft and nontender with normal bowel sounds. No palpable organomegaly was noted. There is no palpable pulsatile mass. SKIN: Skin is clear with no lesions or rashes and otherwise unremarkable. NEUROLOGIC: Patient is alert and oriented x3. Cranial nerves II through XII are grossly intact. Motor and sensory are also intact. Normal speech, volume and content. Symmetrical smile. MUSCULOSKELETAL: Normal extremities with adequate strength and full range of motion. No lower extremity swelling or edema. No calf tenderness. LYMPHATICS: No significant lymphadenopathy is noted PSYCHIATRIC: Normal psychiatric evaluation. Normal interpersonal interactions appears functionally intact in deals appropriately with others. No signs of depression. No signs of anxiety. Limitations: no limitations Course Vital Signs 06/10/18 06/10/18 06/10/18 14:24 14:52 16:35 Temperature 98.5 F Pulse Rate 102 H 94 80 Respiratory 18 18 18 Rate Blood Pressure 145/77 131/70 131/88 O2 Sat by Pulse 96 95 94 L Oximetry Medical Decision Making - Medical Decision Making EKG shows sinus rhythm at 95 bpm [place] interval is 110 QRS is 92 QT interval 44 QTC is 507. Patient's EKG shows no significant ST segment elevation or depression. Patient states she is post have stress test because of the symptoms but she's having such a hard time getting around she doesn't feel like she could go home and be safe. I spoke with Dr. Cruz he agreed to admit the patient admitted the patient I consult cardiology. - Lab Data Result diagrams: 06/10/18 15:18 06/10/18 15:18 Lab Results 06/10/18 06/10/18 06/10/18 Range/Units 15:18 15:18 15:18 WBC 6.8 (3.8-10.6) k/uL RBC 4.35 (3.80-5.40) m/uL Hgb 13.1 (11.4-16.0) gm/dL Hct 40.2 (34.0-46.0) % MCV 92.5 (80.0-100.0) fL MCH 30.1 (25.0-35.0) pg MCHC 32.5 (31.0-37.0) g/dL RDW 13.2 (11.5-15.5) % Plt Count 247 (150-450) k/uL Neutrophils % 71 % Lymphocytes % 13 % Monocytes % 8 % Eosinophils % 5 % Basophils % 1 % Neutrophils # 4.9 (1.3-7.7) k/uL Lymphocytes # 0.9 L (1.0-4.8) k/uL Monocytes # 0.5 (0-1.0) k/uL Eosinophils # 0.3 (0-0.7) k/uL Basophils # 0.1 (0-0.2) k/uL PT (9.0-12.0) sec INR (<1.2) APTT (22.0-30.0) sec Sodium 136 L (137-145) mmol/L Potassium 3.6 (3.5-5.1) mmol/L Chloride 96 L (98-107) mmol/L Carbon Dioxide 31 H (22-30) mmol/L Anion Gap 9 mmol/L BUN 29 H (7-17) mg/dL Creatinine 1.47 H (0.52-1.04) mg/dL Est GFR (CKD-EPI)AfAm 36 (>60 ml/min/1.73 sqM) Est GFR (CKD-EPI)NonAf 32 (>60 ml/min/1.73 sqM) Glucose 121 H (74-99) mg/dL Calcium 9.6 (8.4-10.2) mg/dL Magnesium 2.0 (1.6-2.3) mg/dL Total Bilirubin 0.9 (0.2-1.3) mg/dL AST 30 (14-36) U/L ALT 24 (9-52) U/L Alkaline Phosphatase 67 (38-126) U/L Total Creatine Kinase 106 (30-135) U/L CK-MB (CK-2) 1.6 (0.0-2.4) ng/mL CK-MB (CK-2) Rel Index 1.5 Troponin I <0.012 (0.000-0.034) ng/mL NT-Pro-B Natriuret Pep pg/mL Total Protein 7.1 (6.3-8.2) g/dL Albumin 4.3 (3.5-5.0) g/dL 06/10/18 06/10/18 Range/Units 15:18 15:18 WBC (3.8-10.6) k/uL RBC (3.80-5.40) m/uL Hgb (11.4-16.0) gm/dL Hct (34.0-46.0) % MCV (80.0-100.0) fL MCH (25.0-35.0) pg MCHC (31.0-37.0) g/dL RDW (11.5-15.5) % Plt Count (150-450) k/uL Neutrophils % % Lymphocytes % % Monocytes % % Eosinophils % % Basophils % % Neutrophils # (1.3-7.7) k/uL Lymphocytes # (1.0-4.8) k/uL Monocytes # (0-1.0) k/uL Eosinophils # (0-0.7) k/uL Basophils # (0-0.2) k/uL PT 10.4 (9.0-12.0) sec INR 1.0 (<1.2) APTT 30.5 H (22.0-30.0) sec Sodium (137-145) mmol/L Potassium (3.5-5.1) mmol/L Chloride (98-107) mmol/L Carbon Dioxide (22-30) mmol/L Anion Gap mmol/L BUN (7-17) mg/dL Creatinine (0.52-1.04) mg/dL Est GFR (CKD-EPI)AfAm (>60 ml/min/1.73 sqM) Est GFR (CKD-EPI)NonAf (>60 ml/min/1.73 sqM) Glucose (74-99) mg/dL Calcium (8.4-10.2) mg/dL Magnesium (1.6-2.3) mg/dL Total Bilirubin (0.2-1.3) mg/dL AST (14-36) U/L ALT (9-52) U/L Alkaline Phosphatase (38-126) U/L Total Creatine Kinase (30-135) U/L CK-MB (CK-2) (0.0-2.4) ng/mL CK-MB (CK-2) Rel Index Troponin I (0.000-0.034) ng/mL NT-Pro-B Natriuret Pep 492 pg/mL Total Protein (6.3-8.2) g/dL Albumin (3.5-5.0) g/dL Disposition Clinical Impression: Dyspnea Disposition: ADMITTED IP TO THIS [facility] Referrals: Nonstaff,Physician [Primary Care Provider] - 1-2 days Time of Disposition: 17:12
--- NOTE | 2018-06-10 15:42 | XR ---
EXAMINATION TYPE: XR chest 2V DATE OF EXAM: 06/10/2018 COMPARISON: 05/29/2018 HISTORY: 87-year-old female increased shortness of breath for 2 weeks TECHNIQUE: AP and lateral views FINDINGS: Heart borderline enlarged. Mild elongation thoracic aorta. Mild interstitial prominence is a chronic appearance. Eventration anterior right hemidiaphragm. No consolidation or pleural effusion. Hyperinfl ation with increased retrosternal clear space. Resurfacing left shoulder arthroplasty. IMPRESSION: Similar borderline heart size and chronic changes, suspect underlying COPD. No acute process identifi ed.
[2018-06-10 15:47] LABS: Creatine Kinase 106 U/L (30-135)
[2018-06-10 15:49] LABS: Albumin 4.3 g/dL (3.5-5.0); Calcium 9.6 mg/dL (8.4-10.2); Partial Thromboplastin Time 30.5 sec (22.0-30.0); Potassium 3.6 mmol/L (3.5-5.1); Prothrombin Time 10.4 sec (9.0-12.0); Total Bilirubin 0.9 mg/dL (0.2-1.3); Total Protein 7.1 g/dL (6.3-8.2)
[2018-06-10 15:50] LABS: Basophils # (A) 0.1 k/uL (0-0.2); Basophils % (A) 1 %; Eosinophils # (A) 0.3 k/uL (0-0.7); Eosinophils % (A) 5 %; HCT 40.2 % (34.0-46.0); HGB 13.1 gm/dL (11.4-16.0); Lymphocytes # (A) 0.9 k/uL (1.0-4.8); Lymphocytes % (A) 13 %; MCH 30.1 pg (25.0-35.0); MCHC 32.5 g/dL (31.0-37.0); MCV 92.5 fL (80.0-100.0); Monocytes # (A) 0.5 k/uL (0-1.0); Monocytes % (A) 8 %; Neutrophils # (A) 4.9 k/uL (1.3-7.7); Neutrophils % (A) 71 %; Platelet Count 247 k/uL (150-450); RBC 4.35 m/uL (3.80-5.40); RDW 13.2 % (11.5-15.5); WBC 6.8 k/uL (3.8-10.6)
[2018-06-10 15:59] LABS: Creatine Kinase MB 1.6 ng/mL (0.0-2.4); Troponin I <0.012 ng/mL (0.000-0.034)
[2018-06-10] MEDS ORDERED: NITROGLYCERIN SL TABS 0.4 MG TAB SUBLINGUAL PRN (17:12)
[2018-06-10] MEDS: NITROGLYCERIN OINT 1 INCH/GM PACKET TOPICAL SCH (18:34)
[2018-06-10] MEDS: LOSARTAN 50 MG TAB PO SCH (20:49)
[2018-06-10] MEDS: ATORVASTATIN 20 MG TAB PO SCH (20:50)
[2018-06-10] MEDS: APIXABAN 5 MG TAB PO SCH (20:50)
[2018-06-10] MEDS: HYDROcodone/APAP 7.5-325MG 1 EACH TAB PO PRN (20:50)
[2018-06-10] MEDS ORDERED: IPRATROPIUM-ALBUTEROL 3 ML NEB INHALATION PRN (21:11)
[2018-06-10 21:19] LABS: Creatine Kinase 91 U/L (30-135)
[2018-06-10] MEDS ORDERED: METOPROLOL TARTRATE 50 MG TAB PO SCH (21:30)
[2018-06-10 21:31] LABS: Creatine Kinase MB 1.4 ng/mL (0.0-2.4); Troponin I <0.012 ng/mL (0.000-0.034)
--- NOTE | 2018-06-10 21:34 | P.HPIM ---
History of Present Illness H&P Date: 06/10/18 Chief Complaint: Shortness of Breath Patient is a 87-year-old female with a known paroxysmal atrial fibrillation on anticoagulation with eliquis, coronary artery disease with history of stent placement 2 on 06/22/2013, hypertension, hyperlipidemia and history of [place] came to ER with the complaints of shortness of breath for the past 1 week. Patient says that she was admitted to the hospital and was diagnosed with atrial fibrillation about 2 weeks ago and is currently on anticoagulation. Shortness of breath gets worse with ambulation. No commerce of chest pain. No nausea vomiting or abdominal pain. Patient does have palpitations on and off. No orthopnea or PND. No leg swelling. No headache or dizziness or lightheadedness. No cough or sputum production. Patient does have previous history of smoking. History of COPD. chest x-ray showed similar borderline heart size and chronic changes, suspect underlying COPD. No acute processes identified. Troponin 1 negative BNP 492 BUN and creatinine 29 x 1.47 Review of Systems Constitutional: Patient denies any fever or chills . No generalized weakness or weight loss. Abdomen: Patient denied nausea vomiting and diarrhea and abdominal pain. Cardiovascular: Patient does have exertional short of breath. No chest pain no leg swelling. Patient does have palpitations. Respiratory: patient denied any cough is from production. No shortness of breath Neurologic: Patient denied any numbness or tingling headache. Musculoskeletal: Patient denies any complaints of joint swelling or deformity. Skin: Negative Psychiatric: Negative Endocrine: No heat or cold intolerance. No recent weight gain. Genitourinary: No dysuria or hematuria. All other 14 point ROS negative except the above Past Medical History Past Medical History: Atrial Fibrillation, Cancer, Hyperlipidemia, Hypertension , Myocardial Infarction ([place]) Additional Past Medical History / Comment(s): rt Breast Cancer (1997), Right lumpectomy and radiation tx. hx fx rt leg-no sx, rectal ulcer, straight caths every 4 hours. Last Myocardial Infarction Date:: 06/22/2013 History of Any Multi-Drug Resistant Organisms: None Reported Past Surgical History: Heart Catheterization With Stent, Orthopedic Surgery, Tonsillectomy Additional Past Surgical History / Comment(s): cataract sx, rt brest lumpectomy , heart cath w/2 stents, lt hip replacment, lt shoulder partial replacement, rt knee replacement, sx to straighten toes rt foot Past Anesthesia/Blood Transfusion Reactions: No Reported Reaction Date of Last Stent Placement:: 06/22/2013 Smoking Status: Former smoker - Past Family History Father Additional Family Medical History / Comment(s): Meningitis Mother Family Medical History: Dementia, Hypertension Medications and Allergies Home Medications Medication Instructions Recorded Confirmed Type Apixaban [Eliquis] 5 mg PO BID 05/29/18 06/10/18 History Citalopram Hydrobromide [CeleXA] 40 mg PO DAILY 05/29/18 06/10/18 History Multivitamin/Iron/Folic Acid 1 tab PO DAILY 05/29/18 06/10/18 History [Centrum Complete Multivit Tab] hydrALAZINE HCL [Apresoline] 50 mg PO TID #0 05/30/18 06/10/18 Rx Atorvastatin [Lipitor] 20 mg PO HS 06/10/18 06/10/18 History Furosemide [Lasix] 20 mg PO DAILY 06/10/18 06/10/18 History HYDROcodone/APAP 7.5-325MG [[place] 1 tab PO DAILY PRN 06/10/18 06/10/18 History 7.5-325] Levothyroxine Sodium [Synthroid] 75 mcg PO DAILY 06/10/18 06/10/18 History Losartan Potassium 100 mg PO HS 06/10/18 06/10/18 History Allergies Allergy/AdvReac Type Severity Reaction Status Date / Time meperidine [From Demerol] Allergy Unknown Verified 06/10/18 14:47 Sulfa (Sulfonamide Allergy Unknown Verified 06/10/18 14:47 Antibiotics) Physical Exam Vitals: Vital Signs Temp Pulse Resp BP Pulse Ox 06/10/18 18:28 91 18 191/87 95 06/10/18 16:35 80 18 131/88 94 L 06/10/18 14:52 94 18 131/70 95 06/10/18 14:24 98.5 F 102 H 18 145/77 96 Intake and Output 06/10/18 06/10/18 06/10/18 06:59 14:59 22:59 Other: Weight 63.503 kg PHYSICAL EXAMINATION: Patient is lying in the bed comfortably, no acute distress, awake alert and oriented.. HEENT: Normocephalic. Neck is supple. Pupils reactive. Nostrils clear. Oral cavity is moist. Ears reveal no drainage. Neck reveals no JVD, carotid bruits, or thyromegaly. CHEST EXAMINATION: Trachea is central. Symmetrical expansion. Lung monteiro clear to auscultation and percussion. CARDIAC: Normal S1, S2 with no gallops. No murmurs. Irregularly irregular rhythm ABDOMEN: Soft. Bowel sounds normal. No organomegaly. No abdominal bruits. Extremities: reveal no edema. No clubbing or cyanosis Neurologically awake, alert, oriented x3 with well-coordinated movements. No focal deficits noted Skin: No rash or skin lesions. Psychiatric: Coperative. Nonsuicidal Musculoskeletal: No joint swelling or deformity. Normal range of motion. Results CBC & Chem 7: 06/10/18 15:18 06/10/18 15:18 Labs: Abnormal Lab Results - Last 24 Hours (Table) 06/10/18 06/10/18 06/10/18 Range/Units 15:18 15:18 15:18 Lymphocytes # 0.9 L (1.0-4.8) k/uL APTT 30.5 H (22.0-30.0) sec Sodium 136 L (137-145) mmol/L Chloride 96 L (98-107) mmol/L Carbon Dioxide 31 H (22-30) mmol/L BUN 29 H (7-17) mg/dL Creatinine 1.47 H (0.52-1.04) mg/dL Glucose 121 H (74-99) mg/dL Thrombosis Risk Factor Assmnt - DVT/VTE Prophylaxis DVT/VTE Prophylaxis: Pharmacologic Prophylaxis ordered Assessment and Plan Assessment: Paroxysmal atrial fibrillation with uncontrolled ventricular rate Exertional short of breath Coronary artery disease with history of stent placement 2 on 06/22/2013 Hypertension uncontrolled Hypovolemic hyponatremia Acute on chronic kidney disease stage III baseline creatinine was around 1.1 Hyperlipidemia History of right breast cancer with right lumpectomy and radiation in 1997 Possible underlying COPD as per chest x-ray Previous history of smoking Degenerative joint disease Plan: Patient will be continued on telemetry monitoring. We will start back on metoprolol 50 mg twice a day and continue with losartan. Amlodipine was started for better blood pressure control. Continue with home medications. Will add DuoNeb's when necessary. Cardiology was consulted. Further recommendations based on the clinical course. Time with Patient: Greater than 30
[2018-06-10] MEDS ORDERED: hydrALAZINE HCL 50 MG TAB PO SCH (22:00)
[2018-06-11 05:07] LABS: Calcium 9.3 mg/dL (8.4-10.2); Creatine Kinase MB 1.1 ng/mL (0.0-2.4); Potassium 3.7 mmol/L (3.5-5.1); Troponin I 0.018 ng/mL (0.000-0.034)
[2018-06-11] MEDS: LEVOTHYROXINE 75 MCG TAB PO SCH (06:28)
[2018-06-11] MEDS: HYDROcodone/APAP 7.5-325MG 1 EACH TAB PO PRN ×2 (06:30→20:05)
[2018-06-11] MEDS: NITROGLYCERIN OINT 1 INCH/GM PACKET TOPICAL SCH ×2 (06:31→06:32)
[2018-06-11] MEDS ORDERED: FUROSEMIDE 20 MG TAB PO SCH (09:00)
[2018-06-11] MEDS ORDERED: ASPIRIN 325 MG TAB PO SCH (09:00)
[2018-06-11] MEDS: ASPIRIN 81 MG PO SCH (09:48)
[2018-06-11] MEDS: CITALOPRAM HYDROBROMIDE 20 MG TAB PO SCH (09:48)
[2018-06-11] MEDS: APIXABAN 5 MG TAB PO SCH (09:49)
[2018-06-11] MEDS: LOSARTAN 50 MG TAB PO SCH (10:26)
[2018-06-11] MEDS: amLODIPine 5 MG TAB PO SCH (10:26)
--- NOTE | 2018-06-11 12:51 | P.CRDCN ---
History of Present Illness History of present illness: This is a pleasant 87-year-old female past medical history significant for coronary artery disease s/p 2 stents placed 5ish years ago in [facility], exact details unavailable. She also has hypertension, dyslipidemia and paroxysmal atrial fibrillation eliquis. She recently came to the hospital 05/30 with symptoms of palpitations, chest pain and shortness of breath. Echo performed revealed preserved LV systolic function with EF 55-60%, moderately dilated left atrium, mild aortic regurgitation, mild mitral regurgitation and mild tricuspid regurgitation. She also has moderate pulmonary hypertension with RVSP of 60. She had a follow up appointment with Dr. Claros 06/04. At that time he is recommended a Lexiscan stress test and 24- Holter monitor. Holter monitor has been reviewed from the office and it reveals sinus mechanism with average rate in the 70's. No atrial fibrillation noted. We have been asked to see her in consultation for exertional shortness of breath. She states this has been going on with no improvement. She states she can go to and from the bathroom without difficulty, however anything further she has a hard time breathing. She denies pain in the chest, dizziness, nausea, vomiting or diaphoresis. She also complains of frequent palpitations. Particularly last night she could feel her heart fluttering, telemetry tracings indicated she went into atrial fibrillation with rate in the 120's. Review of the records reveals she is supposed to be on Toprl 50 mg daily however has not been taking this at home. She was started on lopressor 50 BID last night. Blood pressure 132 /67 heart rate 56. 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 Chest x-ray with evidence of COPD no acute cardiopulmonary process noted. Laboratory data reviewed, WBC 6.8, hemoglobin 13.1, sodium 137, potassium 3.7, creatinine 1.77 up from 1.47 on admission, magnesium 2.0, cardiac enzymes negative 3, NT proBNP 492, LDL 54 and HDL 57. Current cardiac medications include Eliquis 5 mg twice a day, Lasix 20 mg daily , hydralazine 50 mg 3 times a day, losartan 100 mg daily and atorvastatin 20 mg daily. At the time of my exam: CONSTITUTIONAL: Denies fever. Denies chills. EYES: Denies blurred vision. Denies vision changes. Denies eye pain. EARS, NOSE, MOUTH & THROAT: Denies headache. Denies sore throat. Denies ear pain. CARDIOVASCULAR: Denies chest pain. Denies shortness of breath. Denies orthopnea. Denies PND. Denies palpitations. RESPIRATORY: Denies cough. GASTROINTESTINAL: Denies abdominal pain. Denies diarrhea. Denies constipation. Denies nausea. Denies vomiting. MUSCULOSKELETAL: Denies myalgias. INTEGUMENTARY: Denies pruitis. Denies rash. NEUROLOGIC: Denies numbness. Denies tingling. Denies weakness. PSYCHIATRIC: Denies anxiety. Denies depression. ENDOCRINE: Denies fatigue. Denies weight change. Denies polydipsia. Denies polyurina. GENITOURINARY: Denies burning, hematuria or urgency with micturation. HEMATOLOGIC: Denies history of anemia. Denies bleeding. GENERAL: This is a 87-year-old female in no apparent distress at the time of my examination. HEENT: Head is atraumatic, normocephalic. Pupils are equal, round. Sclerae anicteric. Conjunctivae are clear. Mucous membranes of the mouth are moist. Neck is supple. There is no jugular venous distention. No carotid bruit is heard. LUNGS: Clear to auscultation no wheezes, rales or rhonchi. No chest wall tenderness is noted on palpation or with deep breathing. HEART: Regular rate and rhythm without murmurs, rubs or gallops. S1 and S2 heard. ABDOMEN: Soft, nontender. Bowel sounds are heard. No organomegaly noted. EXTREMITIES: No evidence of peripheral edema and no calf tenderness noted. VASCULAR: Radial and dorsalis pedis pulses palpated, no evidence of clubbing. NEUROLOGIC: Patient is awake, alert and oriented x3. ASSESSMENT Dyspnea on exertion History of coronary artery disease exact details unavailable Chronic kidney disease, GFR 32 Paroxysmal atrial fibrillation on long-term anticoagulation with rapid ventricular response, resolved. TSH normal 05/30/2018 Hypertension Dyslipidemia COPD Pulmonary hypertension, RVSP 640mmHg PLAN Resume Toprol 50 mg daily. Continue to observe and assess for ongoing shortness of breath and rapid heart rates. She appears very comfortable. Dyspnea most likely related to a-fib with rapid ventricular response, pulmonary hypertension as well as COPD. No evidence of acute heart failure. She already has an outpatient stress test scheduled with Dr. Claros for 06/26 at 0945. Thank you kindly for this consultation. Nurse Practitioner note has been reviewed, I agree with a documented findings and plan of care. Patient was seen and examined. Past Medical History Past Medical History: Atrial Fibrillation, Cancer, Hyperlipidemia, Hypertension , Myocardial Infarction ([place]) Additional Past Medical History / Comment(s): rt Breast Cancer (1997), Right lumpectomy and radiation tx. hx fx rt leg-no sx, rectal ulcer, straight caths every 4 hours. Last Myocardial Infarction Date:: 06/22/2013 History of Any Multi-Drug Resistant Organisms: None Reported Past Surgical History: Heart Catheterization With Stent, Orthopedic Surgery, Tonsillectomy Additional Past Surgical History / Comment(s): cataract sx, rt brest lumpectomy , heart cath w/2 stents, lt hip replacment, lt shoulder partial replacement, rt knee replacement, sx to straighten toes rt foot Past Anesthesia/Blood Transfusion Reactions: No Reported Reaction Date of Last Stent Placement:: 06/22/2013 Smoking Status: Former smoker - Past Family History Father Additional Family Medical History / Comment(s): Meningitis Mother Family Medical History: Dementia, Hypertension Medications and Allergies Home Medications Medication Instructions Recorded Confirmed Type Apixaban [Eliquis] 5 mg PO BID 05/29/18 06/10/18 History Citalopram Hydrobromide [CeleXA] 40 mg PO DAILY 05/29/18 06/10/18 History Multivitamin/Iron/Folic Acid 1 tab PO DAILY 05/29/18 06/10/18 History [Centrum Complete Multivit Tab] hydrALAZINE HCL [Apresoline] 50 mg PO TID #0 05/30/18 06/10/18 Rx Atorvastatin [Lipitor] 20 mg PO HS 06/10/18 06/10/18 History Furosemide [Lasix] 20 mg PO DAILY 06/10/18 06/10/18 History HYDROcodone/APAP 7.5-325MG [[place] 1 tab PO DAILY PRN 06/10/18 06/10/18 History 7.5-325] Levothyroxine Sodium [Synthroid] 75 mcg PO DAILY 06/10/18 06/10/18 History Losartan Potassium 100 mg PO HS 06/10/18 06/10/18 History Allergies Allergy/AdvReac Type Severity Reaction Status Date / Time meperidine [From Demerol] Allergy Unknown Verified 06/10/18 14:47 Sulfa (Sulfonamide Allergy Unknown Verified 06/10/18 14:47 Antibiotics) Physical Exam Vitals: Vital Signs Temp Pulse Pulse Pulse Pulse Resp BP 06/11/18 07:15 06/11/18 05:00 97.7 F 56 L 16 06/10/18 22:46 108 H 16 06/10/18 22:43 132 H 16 06/10/18 21:00 97.6 F 83 17 06/10/18 18:28 91 18 191/87 06/10/18 16:35 80 18 131/88 06/10/18 14:52 94 18 131/70 06/10/18 14:24 98.5 F 102 H 18 145/77 BP Pulse Ox 06/11/18 07:15 98 06/11/18 05:00 132/67 97 06/10/18 22:46 06/10/18 22:43 134/60 95 06/10/18 21:00 176/83 97 06/10/18 18:28 95 06/10/18 16:35 94 L 06/10/18 14:52 95 06/10/18 14:24 96 Intake and Output 06/10/18 06/11/18 06/11/18 22:59 06:59 14:59 Intake Total 480 Balance 480 Intake: Oral 480 Other: Voiding Method Self-Catheterization # Voids 1 1 Weight 63.503 kg Results 06/10/18 15:18 06/11/18 03:14 Cardiac Enzymes 06/10/18 06/10/18 06/10/18 Range/Units 15:18 15:18 20:50 AST 30 (14-36) U/L CK-MB (CK-2) 1.6 1.4 (0.0-2.4) ng/mL Troponin I <0.012 <0.012 (0.000-0.034) ng/mL 06/11/18 Range/Units 03:14 AST (14-36) U/L CK-MB (CK-2) 1.1 (0.0-2.4) ng/mL Troponin I 0.018 (0.000-0.034) ng/mL Coagulation 06/10/18 Range/Units 15:18 PT 10.4 (9.0-12.0) sec APTT 30.5 H (22.0-30.0) sec Lipids 06/11/18 Range/Units 03:14 Triglycerides 83 (<150) mg/dL Cholesterol 128 (<200) mg/dL HDL Cholesterol 57 (40-60) mg/dL CBC 06/10/18 Range/Units 15:18 WBC 6.8 (3.8-10.6) k/uL RBC 4.35 (3.80-5.40) m/uL Hgb 13.1 (11.4-16.0) gm/dL Hct 40.2 (34.0-46.0) % Plt Count 247 (150-450) k/uL Comprehensive Metabolic Panel 06/10/18 06/11/18 Range/Units 15:18 03:14 Sodium 136 L 137 (137-145) mmol/L Potassium 3.6 3.7 (3.5-5.1) mmol/L Chloride 96 L 99 (98-107) mmol/L Carbon Dioxide 31 H 30 (22-30) mmol/L BUN 29 H 33 H (7-17) mg/dL Creatinine 1.47 H 1.77 H (0.52-1.04) mg/dL Glucose 121 H 84 (74-99) mg/dL Calcium 9.6 9.3 (8.4-10.2) mg/dL AST 30 (14-36) U/L ALT 24 (9-52) U/L Alkaline Phosphatase 67 (38-126) U/L Total Protein 7.1 (6.3-8.2) g/dL Albumin 4.3 (3.5-5.0) g/dL Current Medications Generic Name Dose Route Start Last Admin Trade Name Freq PRN Reason Stop Dose Admin Hydrocodone Bitart/Acetaminophen 1 each 06/10/18 20:09 06/11/18 06:30 [place] 7.5-325 PO 1 each Q8H PRN Administration Pain Albuterol/Ipratropium 3 ml 06/10/18 21:11 Duoneb 0.5 Mg-3 Mg/3 Ml Soln INHALATION RT-QID PRN Shortness Of Breath Or Wheezing Amlodipine Besylate 5 mg 06/11/18 09:00 Norvasc PO DAILY [facility] Apixaban 5 mg 06/10/18 21:00 06/10/18 20:50 Eliquis PO 5 mg BID [facility] Administration Aspirin 325 mg 06/11/18 09:00 Aspirin PO DAILY [facility] Atorvastatin Calcium 20 mg 06/10/18 21:00 06/10/18 20:50 Lipitor PO 20 mg HS [facility] Administration Citalopram Hydrobromide 40 mg 06/11/18 09:00 Celexa PO DAILY [facility] Levothyroxine Sodium 75 mcg 06/11/18 06:30 06/11/18 06:28 Synthroid PO 75 mcg DAILY@0630 [facility] Administration Losartan Potassium 100 mg 06/10/18 20:15 06/10/18 20:49 Cozaar PO 100 mg DAILY [facility] Administration Metoprolol Tartrate 50 mg 06/10/18 21:30 06/10/18 22:22 Lopressor PO 50 mg BID [facility] Administration Nitroglycerin 1 inch 06/10/18 18:00 06/11/18 06:32 Nitro-Bid Oint TOPICAL Not Given Q6HR [facility] Nitroglycerin 0.4 mg 06/10/18 17:12 Nitrostat SUBLINGUAL Q5M PRN Chest Pain Intake and Output 06/10/18 06/11/18 06/11/18 22:59 06:59 14:59 Intake Total 480 Balance 480 Intake: Oral 480 Other: Voiding Method Self-Catheterization # Voids 1 1 Weight 63.503 kg 06/10/18 15:18 06/11/18 03:14
[2018-06-11] MEDS ORDERED: METOPROLOL SUCCINATE (ER) 50 MG TAB.ER.24H PO SCH (15:00)
[2018-06-11] MEDS: ATORVASTATIN 20 MG TAB PO SCH (20:05)
[2018-06-11] MEDS: APIXABAN 2.5 MG TABLET PO SCH (20:06)
--- NOTE | 2018-06-11 23:10 | P.PN ---
Subjective Progress Note Date: 06/11/18 Principal diagnosis: Exertional short of breath Uncontrolled hypertension Atrial fibrillation with controlled heart rate. Patient is a 87-year-old female with a known paroxysmal atrial fibrillation on anticoagulation with eliquis, coronary artery disease with history of stent placement 2 on 06/22/2013, hypertension, hyperlipidemia and history of [place] came to ER with the complaints of shortness of breath for the past 1 week. Patient says that she was admitted to the hospital and was diagnosed with atrial fibrillation about 2 weeks ago and is currently on anticoagulation. Shortness of breath gets worse with ambulation. No commerce of chest pain. No nausea vomiting or abdominal pain. Patient does have palpitations on and off. No orthopnea or PND. No leg swelling. No headache or dizziness or lightheadedness. No cough or sputum production. Patient does have previous history of smoking. History of COPD. chest x-ray showed similar borderline heart size and chronic changes, suspect underlying COPD. No acute processes identified. Troponin 1 negative BNP 492 BUN and creatinine 29 x 1.47 06/11/2018 Patient denied any complaints of chest pain or shortness of breath today. Shortness of breath is much improved and the patient is ambulating well in the hallway. Blood pressure is well controlled. Metoprolol has been changed to XL. Cardiology has seen the patient. Patient has scheduled appointment for stress test as an outpatient. No nausea vomiting or abdominal pain. Continue to monitor for another 24 hours. Current medications reviewed Active Medications Hydrocodone Bitart/Acetaminophen ([place] 7.5-325) 1 each PO Q8H PRN PRN Reason: Pain Last Admin: 06/11/18 20:05 Dose: 1 each Albuterol/Ipratropium (Duoneb 0.5 Mg-3 Mg/3 Ml Soln) 3 ml INHALATION RT-QID PRN PRN Reason: Shortness Of Breath Or Wheezing Amlodipine Besylate (Norvasc) 5 mg PO DAILY [facility] Last Admin: 06/11/18 10:26 Dose: 5 mg Apixaban (Eliquis) 2.5 mg PO BID [facility] Last Admin: 06/11/18 20:06 Dose: 2.5 mg Aspirin (Aspirin) 81 mg PO DAILY [facility] Last Admin: 06/11/18 09:48 Dose: 81 mg Atorvastatin Calcium (Lipitor) 20 mg PO HS [facility] Last Admin: 06/11/18 20:05 Dose: 20 mg Citalopram Hydrobromide (Celexa) 40 mg PO DAILY [facility] Last Admin: 06/11/18 09:48 Dose: 40 mg Levothyroxine Sodium (Synthroid) 75 mcg PO DAILY@0630 [facility] Last Admin: 06/11/18 06:28 Dose: 75 mcg Losartan Potassium (Cozaar) 100 mg PO DAILY [facility] Last Admin: 06/11/18 10:26 Dose: 100 mg Metoprolol Succinate (Toprol Xl) 50 mg PO Q24H [facility] Last Admin: 06/11/18 17:29 Dose: Not Given Nitroglycerin (Nitrostat) 0.4 mg SUBLINGUAL Q5M PRN PRN Reason: Chest Pain Objective - Vital Signs Vital signs: Vital Signs Temp 98 F 06/11/18 20:34 Pulse 62 06/11/18 20:34 Resp 16 06/11/18 16:00 BP 138/63 06/11/18 20:34 Pulse Ox 92 L 06/11/18 20:34 Intake & Output 06/11/18 06/11/18 06/12/18 06:59 18:59 06:59 Intake Total 480 1320 Balance 480 1320 Weight 63.503 kg Intake: Oral 480 1320 Other: Voiding Method Self-Catheterization Self-Catheterization # Voids 1 3 - Exam PHYSICAL EXAMINATION: Patient is lying in the bed comfortably, no acute distress, awake alert and oriented.. HEENT: Normocephalic. Neck is supple. Pupils reactive. Nostrils clear. Oral cavity is moist. Ears reveal no drainage. Neck reveals no JVD, carotid bruits, or thyromegaly. CHEST EXAMINATION: Trachea is central. Symmetrical expansion. Lung monteiro clear to auscultation and percussion. CARDIAC: Normal S1, S2 with no gallops. No murmurs . Irregular rhythm ABDOMEN: Soft. Bowel sounds normal. No organomegaly. No abdominal bruits. Extremities: reveal no edema. No clubbing or cyanosis Neurologically awake, alert, oriented x3 with well-coordinated movements. No focal deficits noted Skin: No rash or skin lesions. Psychiatric: Coperative. Nonsuicidal Musculoskeletal: No joint swelling or deformity. Normal range of motion. - Labs CBC & Chem 7: 06/10/18 15:18 06/11/18 03:14 Labs: Abnormal Lab Results - Last 24 Hours (Table) 06/11/18 Range/Units 03:14 BUN 33 H (7-17) mg/dL Creatinine 1.77 H (0.52-1.04) mg/dL Microbiology - Last 24 Hours (Table) 06/10/18 15:36 Blood Culture - Preliminary Blood No Growth after 24 hours Assessment and Plan Assessment: Paroxysmal atrial fibrillation with uncontrolled ventricular rate Exertional short of breath multifactorial with uncontrolled hypertension, A. fib with RVR, COPD and pulmonary hypertension. Improved now. Coronary artery disease with history of stent placement 2 on 06/22/2013 Hypertension uncontrolled Hypovolemic hyponatremia Acute on chronic kidney disease stage III baseline creatinine was around 1.1 Hyperlipidemia History of right breast cancer with right lumpectomy and radiation in 1997 Possible underlying COPD as per chest x-ray pulmonary hypertension RVSP 64mmHG Previous history of smoking Degenerative joint disease Plan: Patient will be continued on telemetry monitoring. Started on metoprolol XL 50 mg daily and continue with losartan. Amlodipine was started for better blood pressure control. Continue with home medications. DuoNeb's when necessary. Cardiology is following. Further recommendations based on the clinical course. Time with Patient: Greater than 30
[2018-06-12 05:11] VITALS: BP 119/54; PULSE 52; RESP 18; TEMP 97.8
[2018-06-12] MEDS: LEVOTHYROXINE 75 MCG TAB PO SCH (06:16)
[2018-06-12] MEDS: ASPIRIN 81 MG PO SCH (08:27)
[2018-06-12] MEDS: APIXABAN 2.5 MG TABLET PO SCH (08:27)
[2018-06-12] MEDS: CITALOPRAM HYDROBROMIDE 20 MG TAB PO SCH (08:27)
[2018-06-12] MEDS: amLODIPine 5 MG TAB PO SCH (08:27)
[2018-06-12] MEDS: LOSARTAN 50 MG TAB PO SCH (08:28)
[2018-06-12 09:37] LABS: Basophils # (A) 0.1 k/uL (0-0.2); Basophils % (A) 1 %; Eosinophils # (A) 0.6 k/uL (0-0.7); Eosinophils % (A) 10 %; HCT 35.4 % (34.0-46.0); HGB 11.7 gm/dL (11.4-16.0); Lymphocytes # (A) 1.1 k/uL (1.0-4.8); Lymphocytes % (A) 20 %; MCHC 32.9 g/dL (31.0-37.0); MCV 94.1 fL (80.0-100.0); Monocytes # (A) 0.5 k/uL (0-1.0); Monocytes % (A) 9 %; Neutrophils # (A) 3.2 k/uL (1.3-7.7); Neutrophils % (A) 56 %; Platelet Count 200 k/uL (150-450); RBC 3.77 m/uL (3.80-5.40); RDW 13.1 % (11.5-15.5); WBC 5.7 k/uL (3.8-10.6)
[2018-06-12 09:50] LABS: Calcium 8.9 mg/dL (8.4-10.2)
--- NOTE | 2018-06-12 10:45 | P.PN ---
Subjective This is a pleasant 87-year-old female past medical history significant for coronary artery disease s/p 2 stents placed 5ish years ago in [facility], exact details unavailable. She also has hypertension, dyslipidemia and paroxysmal atrial fibrillation eliquis. She recently came to the hospital 05/30 with symptoms of palpitations, chest pain and shortness of breath. Echo performed revealed preserved LV systolic function with EF 55-60%, moderately dilated left atrium, mild aortic regurgitation, mild mitral regurgitation and mild tricuspid regurgitation. She also has moderate pulmonary hypertension with RVSP of 60. She had a follow up appointment with Dr. Claros 06/04. At that time he is recommended a Lexiscan stress test and 24- Holter monitor. Holter monitor has been reviewed from the office and it reveals sinus mechanism with average rate in the 70's. No atrial fibrillation noted. We have been asked to see her in consultation for exertional shortness of breath. She is seen and examined resting comfortably in bed in no acute distress. She denies chest pain, shortness of breath, dizziness or palpitations. She states her breathing is much better since admission. Telemetry tracings reveal persistent sinus mechanism. Blood pressure 119/54 heart rate 52 afebrile maintaining oxygen saturation on room air. GENERAL: This is a 87-year-old female in no apparent distress at the time of my examination. HEENT: Head is atraumatic, normocephalic. Pupils are equal, round. Sclerae anicteric. Conjunctivae are clear. Mucous membranes of the mouth are moist. Neck is supple. There is no jugular venous distention. No carotid bruit is heard. LUNGS: Clear to auscultation no wheezes, rales or rhonchi. No chest wall tenderness is noted on palpation or with deep breathing. HEART: Regular rate and rhythm without murmurs, rubs or gallops. S1 and S2 heard. ABDOMEN: Soft, nontender. Bowel sounds are heard. No organomegaly noted. EXTREMITIES: No evidence of peripheral edema and no calf tenderness noted. ASSESSMENT Dyspnea on exertion History of coronary artery disease exact details unavailable Chronic kidney disease, GFR 32 Paroxysmal atrial fibrillation on long-term anticoagulation with rapid ventricular response, resolved. TSH normal 05/30/2018 Hypertension Dyslipidemia COPD Pulmonary hypertension, RVSP 640mmHg PLAN Stable from a cardiac perspective. Outpatient stress test appointment has been confirmed with the office and the patient. Prescription has been sent to the pharmacy for toprol with instructions for use. She verbalizes understanding. Nurse Practitioner note has been reviewed, I agree with a documented findings and plan of care. Patient was seen and examined. Objective - Vital Signs Vital signs: Vital Signs Temp 97.8 F 06/12/18 05:00 Pulse 52 L 06/12/18 05:00 Resp 18 06/12/18 05:00 BP 119/54 06/12/18 05:00 Pulse Ox 95 06/12/18 05:00 Intake & Output 06/11/18 06/12/18 06/12/18 18:59 06:59 18:59 Intake Total 1320 350 240 Balance 1320 350 240 Intake: Oral 1320 350 240 Other: Voiding Method Self-Catheterization Self-Catheterization Self-Catheterization # Voids 3 1 - Labs CBC & Chem 7: 06/12/18 08:49 06/12/18 08:49 Labs: Abnormal Lab Results - Last 24 Hours (Table) 06/12/18 06/12/18 Range/Units 08:49 08:49 RBC 3.77 L (3.80-5.40) m/uL Carbon Dioxide 33 H (22-30) mmol/L BUN 40 H (7-17) mg/dL Creatinine 1.52 H (0.52-1.04) mg/dL Glucose 108 H (74-99) mg/dL Microbiology - Last 24 Hours (Table) 06/10/18 15:36 Blood Culture - Preliminary Blood No Growth after 24 hours
[2018-06-12] MEDS: HYDROcodone/APAP 7.5-325MG 1 EACH TAB PO PRN (10:53)
== END 2018-06-12 14:50 | disposition home or self-care (01) ==
LOC: EC 14:21 → 3NMEDONC 17:18
PROVIDERS: ADMIT Internal Medicine; ATTEND Internal Medicine
DX: R06.00 Dyspnea, unspecified (principal); F32.9 Major depressive disorder, single episode, unspecified; E78.5 Hyperlipidemia, unspecified; E87.1 Hypo-osmolality and hyponatremia; I12.9 Hypertensive chronic kidney disease with stage 1 through stage 4 chronic kidney disease, or unspecified chronic kidney disease; I08.3 Combined rheumatic disorders of mitral, aortic and tricuspid valves; I25.10 Atherosclerotic heart disease of native coronary artery without angina pectoris; I48.0 Paroxysmal atrial fibrillation; N17.9 Acute kidney failure, unspecified; I27.20 Pulmonary hypertension, unspecified; J44.9 Chronic obstructive pulmonary disease, unspecified; M19.90 Unspecified osteoarthritis, unspecified site; N18.3 Chronic kidney disease, stage 3 (moderate); I25.2 Old myocardial infarction; Z79.01 Long term (current) use of anticoagulants; Z79.82 Long term (current) use of aspirin; Z79.890 Hormone replacement therapy; Z79.899 Other long term (current) drug therapy; Z82.49 Family history of ischemic heart disease and other diseases of the circulatory system; Z95.5 Presence of coronary angioplasty implant and graft; Z85.3 Personal history of malignant neoplasm of breast; Z96.651 Presence of right artificial knee joint; Z92.3 Personal history of irradiation; Z87.891 Personal history of nicotine dependence
CPT/HCPCS: 99285; 36415; 94760; 93005 ×2; 83880; 80061; 80053; 80048 ×2; 82550 ×2; 82553 ×2; 83735; 84484 ×2; 85025 ×2; 85610; 85730; 87040; 71046; G0378 ×3

== ENCOUNTER 2018-06-21 17:22 | Inpatient (IN) | payer MEDICARE, BC ==
[2018-06-21] MEDS ORDERED: SODIUM CHLORIDE 0.9% 1,000 ML IV ONE ×2 (17:31)
--- NOTE | 2018-06-21 17:32 | ED ---
Altered Mental Status HPI - General Stated Complaint: altered mental status Time Seen by Provider: 06/21/18 17:31 - History of Present Illness Initial Comments: This is an 79-year-old female the ER for altered mental state. Patient unable to provide history at this time. Patient's brought in by EMS coming from extended care facility for altered mental status. MD Complaint: altered mental status, confusion, decreased responsiveness -: unknown Severity: moderate Consistency of Symptoms: getting worse Associated Symptoms: denies other symptoms - Related Data Home Medications Medication Instructions Recorded Confirmed Apixaban [Eliquis] 5 mg PO BID 05/29/18 06/21/18 Citalopram Hydrobromide [CeleXA] 40 mg PO DAILY 05/29/18 06/21/18 Multivitamin/Iron/Folic Acid 1 tab PO DAILY 05/29/18 06/21/18 [Centrum Complete Multivit Tab] Atorvastatin [Lipitor] 20 mg PO HS 06/10/18 06/21/18 Furosemide [Lasix] 20 mg PO DAILY 06/10/18 06/21/18 HYDROcodone/APAP 7.5-325MG [[place] 1 tab PO DAILY PRN 06/10/18 06/21/18 7.5-325] Levothyroxine Sodium [Synthroid] 75 mcg PO DAILY 06/10/18 06/21/18 Losartan Potassium 100 mg PO HS 06/10/18 06/21/18 Metoprolol Succinate (ER) [Toprol 50 mg PO DAILY 06/21/18 06/21/18 XL] Allergies Allergy/AdvReac Type Severity Reaction Status Date / Time meperidine [From Demerol] Allergy Unknown Verified 06/21/18 17:38 Sulfa (Sulfonamide Allergy Unknown Verified 06/21/18 17:38 Antibiotics) Review of Systems ROS Statement: Those systems with pertinent positive or pertinent negative responses have been documented in the HPI. ROS Other: All systems not noted in ROS Statement are negative. Past Medical History Past Medical History: Atrial Fibrillation, Cancer, Hyperlipidemia, Hypertension , Myocardial Infarction (SD) Additional Past Medical History / Comment(s): rt Breast Cancer (1997), Right lumpectomy and radiation tx. hx fx rt leg-no sx, rectal ulcer, straight caths every 4 hours. Last Myocardial Infarction Date:: 06/22/2013 History of Any Multi-Drug Resistant Organisms: None Reported Past Surgical History: Heart Catheterization With Stent, Orthopedic Surgery, Tonsillectomy Additional Past Surgical History / Comment(s): cataract sx, rt brest lumpectomy , heart cath w/2 stents, lt hip replacment, lt shoulder partial replacement, rt knee replacement, sx to straighten toes rt foot Past Anesthesia/Blood Transfusion Reactions: No Reported Reaction Date of Last Stent Placement:: 06/22/2013 Smoking Status: Former smoker - Past Family History Father Additional Family Medical History / Comment(s): Meningitis Mother Family Medical History: Dementia, Hypertension General Exam Limitations: altered mental status General appearance: alert, in no apparent distress Head exam: Present: atraumatic, normocephalic, normal inspection Eye exam: Present: normal appearance, PERRL, EOMI. Absent: scleral icterus, conjunctival injection, periorbital swelling ENT exam: Present: normal exam, mucous membranes moist Neck exam: Present: normal inspection. Absent: tenderness, meningismus, lymphadenopathy Respiratory exam: Present: normal lung sounds bilaterally. Absent: respiratory distress, wheezes, rales, rhonchi, stridor Cardiovascular Exam: Present: regular rate, normal rhythm, normal heart sounds. Absent: systolic murmur, diastolic murmur, rubs, gallop, clicks GI/Abdominal exam: Present: soft, normal bowel sounds. Absent: distended, tenderness, guarding, rebound, rigid Extremities exam: Present: normal inspection, full ROM, normal capillary refill. Absent: tenderness, pedal edema, joint swelling, calf tenderness Back exam: Present: normal inspection Neurological exam: Present: alert, oriented X3, CN II-XII intact Psychiatric exam: Present: normal affect, normal mood Skin exam: Present: warm, dry, intact, normal color. Absent: rash Course Vital Signs 06/21/18 06/21/18 06/21/18 17:34 18:00 18:30 Temperature 98.8 F Pulse Rate 63 54 L Respiratory 19 18 19 Rate Blood Pressure 152/85 152/85 160/63 O2 Sat by Pulse 93 L 93 L 93 L Oximetry - Reevaluation(s) Reevaluation #1: 06/21/18 17:47 Medical records reviewed Reevaluation #2: 06/21/18 19:07 At this point patient has no significant improvement in mental status Medical Decision Making - Medical Decision Making 79 female the ER for altered mental state. Patient has positive urinary tract infection, will admit for IV antibiotics and monitoring of mental state, family also thinks patient may have taken too many of her pain medication, or any other medication that she does have. - Lab Data Result diagrams: 06/21/18 17:37 06/21/18 17:37 Lab Results 06/21/18 06/21/18 06/21/18 Range/Units 17:37 17:37 17:37 WBC 11.1 H (3.8-10.6) k/uL RBC 4.03 (3.80-5.40) m/uL Hgb 11.8 (11.4-16.0) gm/dL Hct 37.8 (34.0-46.0) % MCV 93.7 (80.0-100.0) fL MCH 29.2 (25.0-35.0) pg MCHC 31.1 (31.0-37.0) g/dL RDW 13.3 (11.5-15.5) % Plt Count 223 (150-450) k/uL Neutrophils % 77 % Lymphocytes % 10 % Monocytes % 5 % Eosinophils % 5 % Basophils % 1 % Neutrophils # 8.5 H (1.3-7.7) k/uL Lymphocytes # 1.1 (1.0-4.8) k/uL Monocytes # 0.6 (0-1.0) k/uL Eosinophils # 0.5 (0-0.7) k/uL Basophils # 0.1 (0-0.2) k/uL PT (9.0-12.0) sec INR (<1.2) APTT (22.0-30.0) sec Sodium 140 (137-145) mmol/L Potassium 4.8 (3.5-5.1) mmol/L Chloride 102 (98-107) mmol/L Carbon Dioxide 29 (22-30) mmol/L Anion Gap 9 mmol/L BUN 36 H (7-17) mg/dL Creatinine 1.46 H (0.52-1.04) mg/dL Est GFR (CKD-EPI)AfAm 37 (>60 ml/min/1.73 sqM) Est GFR (CKD-EPI)NonAf 32 (>60 ml/min/1.73 sqM) Glucose 100 H (74-99) mg/dL Calcium 9.5 (8.4-10.2) mg/dL Phosphorus 4.3 (2.5-4.5) mg/dL Magnesium 2.1 (1.6-2.3) mg/dL Total Bilirubin 1.0 (0.2-1.3) mg/dL AST 31 (14-36) U/L ALT 33 (9-52) U/L Alkaline Phosphatase 62 (38-126) U/L Ammonia (<30) umol/L Total Creatine Kinase 132 (30-135) U/L CK-MB (CK-2) 1.7 (0.0-2.4) ng/mL CK-MB (CK-2) Rel Index 1.3 Troponin I <0.012 (0.000-0.034) ng/mL Total Protein 7.2 (6.3-8.2) g/dL Albumin 4.2 (3.5-5.0) g/dL Urine Color Urine Appearance (Clear) Urine pH (5.0-8.0) Ur Specific [place] (1.001-1.035) Urine Protein (Negative) Urine Glucose (UA) (Negative) Urine Ketones (Negative) Urine Blood (Negative) Urine Nitrite (Negative) Urine Bilirubin (Negative) Urine Urobilinogen (<2.0) mg/dL Ur Leukocyte Esterase (Negative) Urine WBC (0-5) /hpf Ur Squamous Epith Cells (0-4) /hpf Urine Bacteria (None) /hpf Salicylates mg/dL Urine Opiates Screen (NotDetected) Ur Oxycodone Screen (NotDetected) Urine Methadone Screen (NotDetected) Ur Propoxyphene Screen (NotDetected) Acetaminophen ug/mL Ur Barbiturates Screen (NotDetected) U Tricyclic Antidepress (NotDetected) Ur Phencyclidine Scrn (NotDetected) Ur Amphetamines Screen (NotDetected) U Methamphetamines Scrn (NotDetected) U Benzodiazepines Scrn (NotDetected) Urine Cocaine Screen (NotDetected) U Marijuana (THC) Screen (NotDetected) 06/21/18 06/21/18 06/21/18 Range/Units 17:37 17:37 17:40 WBC (3.8-10.6) k/uL RBC (3.80-5.40) m/uL Hgb (11.4-16.0) gm/dL Hct (34.0-46.0) % MCV (80.0-100.0) fL MCH (25.0-35.0) pg MCHC (31.0-37.0) g/dL RDW (11.5-15.5) % Plt Count (150-450) k/uL Neutrophils % % Lymphocytes % % Monocytes % % Eosinophils % % Basophils % % Neutrophils # (1.3-7.7) k/uL Lymphocytes # (1.0-4.8) k/uL Monocytes # (0-1.0) k/uL Eosinophils # (0-0.7) k/uL Basophils # (0-0.2) k/uL PT 10.5 (9.0-12.0) sec INR 1.0 (<1.2) APTT 29.3 (22.0-30.0) sec Sodium (137-145) mmol/L Potassium (3.5-5.1) mmol/L Chloride (98-107) mmol/L Carbon Dioxide (22-30) mmol/L Anion Gap mmol/L BUN (7-17) mg/dL Creatinine (0.52-1.04) mg/dL Est GFR (CKD-EPI)AfAm (>60 ml/min/1.73 sqM) Est GFR (CKD-EPI)NonAf (>60 ml/min/1.73 sqM) Glucose (74-99) mg/dL Calcium (8.4-10.2) mg/dL Phosphorus (2.5-4.5) mg/dL Magnesium (1.6-2.3) mg/dL Total Bilirubin (0.2-1.3) mg/dL AST (14-36) U/L ALT (9-52) U/L Alkaline Phosphatase (38-126) U/L Ammonia 15 (<30) umol/L Total Creatine Kinase (30-135) U/L CK-MB (CK-2) (0.0-2.4) ng/mL CK-MB (CK-2) Rel Index Troponin I (0.000-0.034) ng/mL Total Protein (6.3-8.2) g/dL Albumin (3.5-5.0) g/dL Urine Color Urine Appearance (Clear) Urine pH (5.0-8.0) Ur Specific [place] (1.001-1.035) Urine Protein (Negative) Urine Glucose (UA) (Negative) Urine Ketones (Negative) Urine Blood (Negative) Urine Nitrite (Negative) Urine Bilirubin (Negative) Urine Urobilinogen (<2.0) mg/dL Ur Leukocyte Esterase (Negative) Urine WBC (0-5) /hpf Ur Squamous Epith Cells (0-4) /hpf Urine Bacteria (None) /hpf Salicylates <1.0 mg/dL Urine Opiates Screen (NotDetected) Ur Oxycodone Screen (NotDetected) Urine Methadone Screen (NotDetected) Ur Propoxyphene Screen (NotDetected) Acetaminophen <10.0 ug/mL Ur Barbiturates Screen (NotDetected) U Tricyclic Antidepress (NotDetected) Ur Phencyclidine Scrn (NotDetected) Ur Amphetamines Screen (NotDetected) U Methamphetamines Scrn (NotDetected) U Benzodiazepines Scrn (NotDetected) Urine Cocaine Screen (NotDetected) U Marijuana (THC) Screen (NotDetected) 06/21/18 Range/Units 18:20 WBC (3.8-10.6) k/uL RBC (3.80-5.40) m/uL Hgb (11.4-16.0) gm/dL Hct (34.0-46.0) % MCV (80.0-100.0) fL MCH (25.0-35.0) pg MCHC (31.0-37.0) g/dL RDW (11.5-15.5) % Plt Count (150-450) k/uL Neutrophils % % Lymphocytes % % Monocytes % % Eosinophils % % Basophils % % Neutrophils # (1.3-7.7) k/uL Lymphocytes # (1.0-4.8) k/uL Monocytes # (0-1.0) k/uL Eosinophils # (0-0.7) k/uL Basophils # (0-0.2) k/uL PT (9.0-12.0) sec INR (<1.2) APTT (22.0-30.0) sec Sodium (137-145) mmol/L Potassium (3.5-5.1) mmol/L Chloride (98-107) mmol/L Carbon Dioxide (22-30) mmol/L Anion Gap mmol/L BUN (7-17) mg/dL Creatinine (0.52-1.04) mg/dL Est GFR (CKD-EPI)AfAm (>60 ml/min/1.73 sqM) Est GFR (CKD-EPI)NonAf (>60 ml/min/1.73 sqM) Glucose (74-99) mg/dL Calcium (8.4-10.2) mg/dL Phosphorus (2.5-4.5) mg/dL Magnesium (1.6-2.3) mg/dL Total Bilirubin (0.2-1.3) mg/dL AST (14-36) U/L ALT (9-52) U/L Alkaline Phosphatase (38-126) U/L Ammonia (<30) umol/L Total Creatine Kinase (30-135) U/L CK-MB (CK-2) (0.0-2.4) ng/mL CK-MB (CK-2) Rel Index Troponin I (0.000-0.034) ng/mL Total Protein (6.3-8.2) g/dL Albumin (3.5-5.0) g/dL Urine Color Light Yellow Urine Appearance Clear (Clear) Urine pH 6.5 (5.0-8.0) Ur Specific [place] 1.007 (1.001-1.035) Urine Protein Negative (Negative) Urine Glucose (UA) Negative (Negative) Urine Ketones Negative (Negative) Urine Blood Negative (Negative) Urine Nitrite Positive H (Negative) Urine Bilirubin Negative (Negative) Urine Urobilinogen <2.0 (<2.0) mg/dL Ur Leukocyte Esterase Small H (Negative) Urine WBC 6 H (0-5) /hpf Ur Squamous Epith Cells <1 (0-4) /hpf Urine Bacteria Moderate H (None) /hpf Salicylates mg/dL Urine Opiates Screen Detected H (NotDetected) Ur Oxycodone Screen Not Detected (NotDetected) Urine Methadone Screen Not Detected (NotDetected) Ur Propoxyphene Screen Not Detected (NotDetected) Acetaminophen ug/mL Ur Barbiturates Screen Not Detected (NotDetected) U Tricyclic Antidepress Not Detected (NotDetected) Ur Phencyclidine Scrn Not Detected (NotDetected) Ur Amphetamines Screen Not Detected (NotDetected) U Methamphetamines Scrn Not Detected (NotDetected) U Benzodiazepines Scrn Not Detected (NotDetected) Urine Cocaine Screen Not Detected (NotDetected) U Marijuana (THC) Screen Not Detected (NotDetected) - EKG Data -: EKG Interpreted by Me (EKG shows sinus bradycardia rate of 59, FL 166, QRS 86 , QTC 419) - Radiology Data Radiology results: report reviewed (CT brain negative for acute disease chest x- rays negative for acute disease), image reviewed Disposition Clinical Impression: Altered mental status, UTI (urinary tract infection) Disposition: ADMITTED IP TO THIS [facility] Condition: Fair Is patient prescribed a controlled substance at d/c from ED?: No Referrals: Nonstaff,Physician [Primary Care Provider] - 1-2 days
[2018-06-21 17:56] LABS: Basophils # (A) 0.1 k/uL (0-0.2); Basophils % (A) 1 %; Eosinophils # (A) 0.5 k/uL (0-0.7); Eosinophils % (A) 5 %; HCT 37.8 % (34.0-46.0); HGB 11.8 gm/dL (11.4-16.0); Lymphocytes # (A) 1.1 k/uL (1.0-4.8); Lymphocytes % (A) 10 %; MCH 29.2 pg (25.0-35.0); MCHC 31.1 g/dL (31.0-37.0); MCV 93.7 fL (80.0-100.0); Mean Platelet Volume 6.9; Monocytes # (A) 0.6 k/uL (0-1.0); Monocytes % (A) 5 %; Neutrophils # (A) 8.5 k/uL (1.3-7.7); Neutrophils % (A) 77 %; Platelet Count 223 k/uL (150-450); RBC 4.03 m/uL (3.80-5.40); RDW 13.3 % (11.5-15.5); WBC 11.1 k/uL (3.8-10.6)
[2018-06-21 18:07] LABS: Partial Thromboplastin Time 29.3 sec (22.0-30.0); Prothrombin Time 10.5 sec (9.0-12.0)
[2018-06-21 18:38] LABS: Creatine Kinase 132 U/L (30-135)
[2018-06-21 18:41] LABS: Albumin 4.2 g/dL (3.5-5.0); Calcium 9.5 mg/dL (8.4-10.2); Magnesium 2.1 mg/dL (1.6-2.3); Phosphorus 4.3 mg/dL (2.5-4.5); Potassium 4.8 mmol/L (3.5-5.1); Total Protein 7.2 g/dL (6.3-8.2)
[2018-06-21 18:45] LABS: Appearance,Urine Clear (Clear); Bacteria,Urine Moderate /hpf; Bilirubin,Urine Negative (Negative); Blood,Urine Negative (Negative); Color,Urine Light Yellow; Glucose,Urine (UA) Negative (Negative); Ketones,Urine Negative (Negative); Leukocyte Esterase,Urine Small (Negative); Nitrite,Urine Positive (Negative); PH, Urine 6.5 (5.0-8.0); Protein,Urine Negative (Negative); Specific Gravity,Urine 1.007 (1.001-1.035); Squamous Epithelial Cell,Urine <1 /hpf (0-4); Urobilinogen,Urine <2.0 mg/dL (<2.0); WBC,Urine 6 /hpf (0-5)
[2018-06-21 18:50] LABS: Amphetamine Screen,Urine Not Detected (NotDetected); Barbiturate Screen,Urine Not Detected (NotDetected); Benzodiazepines Screen,Urine Not Detected (NotDetected); Cocaine Screen,Urine Not Detected (NotDetected); Methadone Screen, Urine Not Detected (NotDetected); Opiate Screen,Urine Detected (NotDetected); Oxycodone Screen, Urine Not Detected (NotDetected); Phencyclidine Screen,Urine Not Detected (NotDetected); Tricyclic Antidepressant,Urine Not Detected (NotDetected); Urn Cannabinoid Scrn Not Detected (NotDetected)
[2018-06-21 18:50] LABS: Acetaminophen <10.0 ug/mL; Salicylate <1.0 mg/dL
[2018-06-21 18:51] LABS: Creatine Kinase MB 1.7 ng/mL (0.0-2.4); Troponin I <0.012 ng/mL (0.000-0.034)
[2018-06-21] MEDS ORDERED: cefTRIAXone 2,000 MG in SODIUM CHLORIDE 0.9% 100 ML IVPB STA (18:56)
--- NOTE | 2018-06-21 19:02 | CT ---
EXAMINATION TYPE: CT brain luciana steele DATE OF EXAM: 06/21/2018 COMPARISON: NONE HISTORY: Altered mental status CT DLP: 1284.7 mGycm. Automated Exposure Control for Dose Reduction was Utilized. TECHNIQUE: CT scan of the head and cervical spine are performed without contrast. FINDINGS: Beam hardening artifact from right shoulder prosthesis significantly limits examination. There is no acute intracranial hemorrhage, mass effect, or midline shift identified. The ventricles and sulci are within normal limits in size. The globes are intact and the visualized sinuses are obi ar. Cervical spine is visualized in its entirety from C1 through upper thoracic spine. There is grade 2 a nterolisthesis of C7 on T1. Grade 1 anterolisthesis of C4 on C5. Cervical vertebral body heights are maintained. Facets remain in normal alignment. Spinous processes are intact. The C1/C2 articulation i s within normal limits. The dens is intact. Extensive multilevel facet hypertrophy with endplate scle rotic changes. Limited evaluation the upper thorax reveals extensive calcification of the thoracic ao rta and great vessels. Calcification of the carotid bulbs. IMPRESSION: 1. No acute intracranial hemorrhage, mass effect, or midline shift is seen. 2. Multilevel anterolisthesis which is likely chronic. 3. No definitive evidence for acute cervical spine fracture.
--- NOTE | 2018-06-21 19:03 | XR ---
EXAMINATION TYPE: XR chest 2V DATE OF EXAM: 06/21/2018 COMPARISON: CT pulmonary angiography 05/29/2018 HISTORY: Altered mental status TECHNIQUE: Frontal and lateral views of the chest are obtained. FINDINGS: There is no focal air space opacity, pleural effusion, or pneumothorax seen. The cardiac silhouette size is within normal limits. The osseous structures are intact. Partial left shoulder p rosthesis is evident. Bilateral hilar fullness relates to prominent pulmonary arteries aren't compari son CT angiography of the chest IMPRESSION: No acute cardiopulmonary process.
[2018-06-21 20:37] LABS: Glucose,Whole Blood 117 mg/dL (75-99)
[2018-06-21] MEDS ORDERED: NALOXONE 0.4 MG/ML 1 ML VIAL IV STA (21:22)
--- NOTE | 2018-06-21 21:27 | P.PN ---
Progress Note - Text Progress Note Date: 06/21/18 upon reviewing patient chart, she was discharged from [facility] service last week, so she will be switched under their service. ER notified, RN notified. patient was seen at bedside , she grimaces to verbal stimulation, and opens eyes and spontaneously moves all 4 extremities with painful stimulation blood pressure 200/80, but 175/85 manually , HR in the 70s , oxygen sat >96% on [address] of the head unremarkable for any acute process admitting diagnosis was acute metabolic encephalopathy secondary to underlying UTI. In the ED , family mentioned to the ER doc , that there is possibility of overdose on her medications , this need to be clarified further labs reviewed , no electrolyte abnormalities, renal function within baseline patient baseline is unknown , family not present at this time for further info. patient received IVF and a dose of Rocephine in the ED patient care is now under [facility] service.
[2018-06-21] MEDS ORDERED: NALOXONE 0.4 MG/ML 1 ML VIAL ONE (21:29)
[2018-06-22] MEDS ORDERED: RX INFO: IV CONTRAST WAS GIVEN 1 EACH MISC MISCELLANE PRN (02:05)
--- NOTE | 2018-06-22 03:25 | CT ---
EXAMINATION TYPE: CT angio head neck DATE OF EXAM: 06/22/2018 HISTORY: AMS COMPARISON: CT DLP: 285.7 mGycm. Automated Exposure Control for Dose Reduction was Utilized. TECHNIQUE: CTA scan of the neck is performed with IV Contrast, patient injected with 65 mL of Isovue 370, axial images are obtained, coronal and sagittal reformatted images are reviewed. Three-D recons tructed images are created on an independent workstation and reviewed. FINDINGS: There is atheromatous change in the aortic arch. There is normal branching pattern of the great vesse ls. There is bilateral arterial flow in the subclavian arteries. There is arterial flow in the vertebral arteries bilaterally which are fairly symmetric. There is art erial flow in the common internal and external carotid arteries bilaterally. There is atherosclerotic calcification at the origins of the internal carotid arteries bilaterally and lumen narrowing of les s than 20%. There is no evidence of carotid or vertebral artery aneurysm or dissection. There is bila teral internal carotid artery intracranial flow. There is arterial flow in the vertebrobasilar artery system. There is arterial flow in the anterior middle and posterior cerebral arteries. There is no m ass effect. There is no evidence of aneurysm or neovascularity. There is no evidence of hemodynamic s tenosis. There is normal contrast opacification of the venous sinuses. There is no evidence of intrac ranial hemorrhage. IMPRESSION: Minimal atheromatous change at the carotid artery bifurcations. No evidence of hemodynamic stenosis.
--- NOTE | 2018-06-22 03:29 | CT ---
EXAMINATION TYPE: CT brain w con DATE OF EXAM: 06/22/2018 COMPARISON: Yesterday HISTORY: AMS CT DLP: 1047.1 mGycm Automated exposure control for dose reduction was used. CONTRAST: CT scan of the head is performed with IV Contrast, patient injected with 65 mL of Isovue 370. FINDINGS: There is cerebral cortical atrophy. There is no mass effect nor midline shift. There is no sign of in tracranial hemorrhage. There is no pathologic enhancement. The calvarium is intact. IMPRESSION: Cerebral atrophy. No acute intracranial abnormality. No change compared to yesterday.
[2018-06-22] MEDS ORDERED: FUROSEMIDE 10 MG/ML 4 ML VIAL IV STA (03:49)
--- NOTE | 2018-06-22 04:36 | XR ---
EXAMINATION TYPE: XR chest 1V portable DATE OF EXAM: 06/22/2018 COMPARISON: Yesterday HISTORY: Short of breath TECHNIQUE: Single frontal view of the chest is obtained. FINDINGS: There is patchy infiltrate in both lower lobes. There is no definite heart failure. There is left shoulder prosthesis. Thoracic aorta is atheromatous. There is slight blunting of left costoph renic angle. IMPRESSION: Bilateral lower lobe pneumonia is increased and new compared to yesterday. No gross hear t failure.
[2018-06-22] MEDS ORDERED: LABETALOL SYRINGE 5 MG/ML IVP STA (04:37)
[2018-06-22 04:43] LABS: ABG PCO2 47 mmHg (35-45); ABG PH 7.34 (7.35-7.45); ABG PO2 >400 mmHg (83-108)
[2018-06-22 04:44] LABS: ABG HCO3 25 mmol/L (21-25)
[2018-06-22] MEDS ORDERED: VANCOMYCIN IV PER PHARMACY 1 EACH MISC MISCELLANE PRN (04:49)
[2018-06-22] MEDS ORDERED: PIPERACILLIN-TAZOBACTAM 3.375 GM in SODIUM CHLORIDE 0.9% 100 ML IVPB SCH (04:51)
[2018-06-22] MEDS ORDERED: VANCOMYCIN 1,250 MG in SODIUM CHLORIDE 0.9% 250 ML IVPB STA (04:55)
[2018-06-22] MEDS ORDERED: VANCOMYCIN 1,250 MG in SODIUM CHLORIDE 0.9% 250 ML IVPB SCH (05:00)
[2018-06-22] MEDS ORDERED: SODIUM CHLORIDE 0.45% 1,000 ML IV SCH (05:00)
[2018-06-22 05:16] LABS: Glucose,Whole Blood 197 mg/dL (75-99)
[2018-06-22 05:52] LABS: Basophils % (A) 0 %; Eosinophils # (A) 0.1 k/uL (0-0.7); Eosinophils % (A) 0 %; HCT 39.5 % (34.0-46.0); HGB 12.2 gm/dL (11.4-16.0); Lymphocytes # (A) 0.4 k/uL (1.0-4.8); Lymphocytes % (A) 3 %; MCH 29.5 pg (25.0-35.0); MCHC 30.8 g/dL (31.0-37.0); MCV 95.8 fL (80.0-100.0); Monocytes # (A) 0.5 k/uL (0-1.0); Monocytes % (A) 4 %; Neutrophils # (A) 12.9 k/uL (1.3-7.7); Neutrophils % (A) 92 %; Platelet Count 202 k/uL (150-450); RBC 4.13 m/uL (3.80-5.40); RDW 13.2 % (11.5-15.5); WBC 13.9 k/uL (3.8-10.6)
[2018-06-22 06:08] LABS: Albumin 4.3 g/dL (3.5-5.0); Calcium 9.3 mg/dL (8.4-10.2); Magnesium 1.9 mg/dL (1.6-2.3); Phosphorus 5.1 mg/dL (2.5-4.5); Potassium 4.1 mmol/L (3.5-5.1); Total Bilirubin 1.5 mg/dL (0.2-1.3); Total Protein 7.2 g/dL (6.3-8.2)
[2018-06-22] MEDS ORDERED: LEVOTHYROXINE 75 MCG TAB PO SCH (06:30)
[2018-06-22] MEDS ORDERED: cloNIDine 0.1 MG/24HR PATCH TRANSDERM SCH (06:45)
[2018-06-22 08:52] VITALS: BMI 24.0
[2018-06-22] MEDS ORDERED: ENOXAPARIN 40 MG/0.4 ML SYRINGE SQ SCH (09:00)
[2018-06-22] MEDS ORDERED: METOPROLOL SUCCINATE (ER) 50 MG TAB.ER.24H PO SCH (09:00)
[2018-06-22] MEDS ORDERED: hydrALAZINE HCL 20 MG/ML 1 ML VIAL IVP PRN (09:31)
[2018-06-22 13:45] VITALS: BP 161/106; PULSE 100; RESP 21; TEMP 98.9
--- NOTE | 2018-06-22 16:17 | HP ---
HISTORY AND PHYSICAL This is a combination history and physical and discharge summary. CHIEF COMPLAINT: Change in mental status. HISTORY OF PRESENT ILLNESS: This 87-year-old woman with a past medical history of multiple medical problems including atrial fibrillation, COPD, hypertension, hyperlipidemia, history of breast cancer, CAD, stent recently admitted to [facility] with complaints of paroxysmal atrial fibrillation, exertional shortness of breath. The patient improved significantly. Patient was in the ECF. From the ECF the patient was admitted with history of change in mental status. The patient is confused and the patient had decreased responsiveness. On initial evaluation no acute abnormality. CT scan of the brain showed no acute abnormality. The sensorium was not improving. Because of that concern, the case discussed with [facility] and the patient is being transferred to [facility] for further evaluation and treatment. There is no history of trauma. The patient is unable to give any coherent history. Most of the history is taken from my discussion with staff and review of chart. PAST MEDICAL HISTORY: Atrial fibrillation, COPD, hypertension, hyperlipidemia, myocardial infarction, breast cancer, CAD and stent. MEDICATIONS: Prior to admission include: 1. Multivitamins 1 p.o. daily. 2. Toprol-XL 50 mg p.o. daily. 3. Losartan 100 mg p.o. q.h.s. 4. Synthroid 75 mcg p.o. daily. 5. Hydrocodone 7.5 mg daily p.r.n. 6. Lasix 20 mg daily. 7. Celexa 40 mg daily. 8. Lipitor 20 mg q.h.s. 9. Eliquis 5 mg p.o. b.i.d. ALLERGIES: DEMEROL AND SULFA. Family history, social history and review of systems could not be taken because of the patient's mental status. Remote history of smoking per chart. PHYSICAL EXAM: Patient is stuporous, unresponsive. Pulse is 100, blood pressure 161/106, respiration 20, temperature 98.2, pulse ox 90% on 15 L. HEENT: Conjunctivae normal. Oral mucosa moist. Neck is no jugular venous distention, no carotid bruit, no lymph node enlargement. CARDIOVASCULAR: S1, S2. RESPIRATORY: Breath sounds diminished in the bases. Bilateral scattered rhonchi and crackles. ABDOMEN: Soft, nontender. LEGS: No edema. NERVOUS SYSTEM: The patient is unresponsive. SKIN: No ulcer. JOINT: No active acute deforming arthropathy. LABS: WBC 13.9, sodium 139, glucose 212, and bilirubin is 1.5. The radiology evaluation noted. Chest x-ray, bilateral lower lobe pneumonia possibly. ASSESSMENT: 1. Change in mental status and possible metabolic encephalopathy, etiology undetermined. 2. Possible bibasilar pneumonia, possible gram-negative. 3. Possible sepsis. 4. History of atrial fibrillation. 5. Chronic obstructive pulmonary disease. 6. Hypertension. 7. Hyperlipidemia. 8. Myocardial infarction. 9. History of right breast cancer with right lumpectomy. 10.History of coronary artery disease, stent. 11.History of depression. 12.FULL CODE with instructions. RECOMMENDATIONS AND DISCUSSION: This 87-year-old woman who presented with multiple medical issues, at this time we will continue the broad-spectrum IV antibiotics. Continue the rest of medications. Continue as mentioned. Continue with DVT prophylaxis as mentioned earlier. I discussed the case at length with the [facility] and patient will be transferred to [facility] for further evaluation and treatment. The prognosis remained extremely guarded throughout the hospital stay. Further recommendations to follow. MMODL / IJN: [id number] /
[2018-06-22] MEDS ORDERED: LOSARTAN 50 MG TAB PO SCH (21:00)
[2018-06-22] MEDS ORDERED: ATORVASTATIN 20 MG TAB PO SCH (21:00)
[2018-06-23] MEDS ORDERED: VANCOMYCIN 1,000 MG in SODIUM CHLORIDE 0.9% 250 ML IVPB ONE (06:00)
== END 2018-06-22 14:45 | disposition short-term general hospital (02) | DRG 871 ==
LOC: EC 17:22 → 4MS4W 19:07 → 2SICU 06-22 05:04 → OBSVTOIN 06-22 09:24
PROVIDERS: ADMIT Hospitalist; ATTEND Hospitalist
DX: A41.9 Sepsis, unspecified organism (principal); G93.41 Metabolic encephalopathy; J15.6 Pneumonia due to other Gram-negative bacteria; N39.0 Urinary tract infection, site not specified; E78.5 Hyperlipidemia, unspecified; I10 Essential (primary) hypertension; I25.10 Atherosclerotic heart disease of native coronary artery without angina pectoris; I25.2 Old myocardial infarction; I48.0 Paroxysmal atrial fibrillation; J44.9 Chronic obstructive pulmonary disease, unspecified; Z79.01 Long term (current) use of anticoagulants; Z79.890 Hormone replacement therapy; Z82.49 Family history of ischemic heart disease and other diseases of the circulatory system; Z85.3 Personal history of malignant neoplasm of breast; Z87.891 Personal history of nicotine dependence; Z95.5 Presence of coronary angioplasty implant and graft; Z96.651 Presence of right artificial knee joint; Z79.899 Other long term (current) drug therapy; Z88.5 Allergy status to narcotic agent; Z88.2 Allergy status to sulfonamides; Z98.49 Cataract extraction status, unspecified eye
CPT/HCPCS: 36415; 36600; 70450; 70460; 70496; 70498; 71045; 71046; 72125; 80053; 80306; 81001; 82140; 82550; 82553; 82805; 83520; 83605; 83735; 84100; 84146; 84484; 85025; 85379; 85610; 85730; 87077; 87086; 87186; 93005; 96361; 96365; 99285